=== PATIENT | male | born 1960 | race Caucasian/White ===

== ENCOUNTER 2020-06-13 09:45 | Emergency (ER) | payer OTHER ==
[~2020-06-13] VITALS: Ht 180.3 cm; Wt 80.7 kg
[2020-06-13] MEDS ORDERED: PRED20 PO (11:41)
== END 2020-06-13 12:50 | disposition home or self-care (01) ==
LOC: ER 09:45
DX: U07.1 COVID-19 (principal); J12.82 Pneumonia due to coronavirus disease 2019; R09.02 Hypoxemia
CPT/HCPCS: 71045; 99285; J7512

== ENCOUNTER 2020-06-18 10:16 | Inpatient (IN) | payer OTHER ==
[~2020-06-18] VITALS: Ht 180.3 cm; Wt 72.5 kg
[~2020-06-18 10:16] MED LIST: PRED20 PO
[2020-06-18 10:35] LABS: Calcium, Ionized (POC) 0.98 mmol/L (1.10-1.46); Chloride (POC) 102 mmol/L (98-108); Creatinine (POC) 0.7 mg/dL (0.8-1.3); Glucose (ISTAT POC) 129 mg/dL (70-99); Hemoglobin (POC) 13.6 g/dL (13.5-17.5); Potassium (POC) 3.1 mmol/L (3.5-5.5); Sodium (POC) 136 mmol/L (135-148); Total CO2 (POC) 22 mmol/L (21-32)
[2020-06-18 10:47] LABS: BASOPHILS ABSOLUTE AUTO 0.04 K/mm3 (0.00-0.23); BASOPHILS PERCENT AUTO 0 % (0-2); EOSINOPHILS ABSOLUTE AUTO 0.13 K/mm3 (0.00-0.68); EOSINOPHILS PERCENT AUTO 1 % (0-6); Hematocrit 39.9 % (37.0-53.0); Hemoglobin 13.3 g/dL (13.5-17.5); IMMATURE GRAN ABSOLUTE AUTO 0.07 K/mm3 (0.00-0.10); IMMATURE GRAN PERCENT AUTO 1 % (0-1); LYMPHOCYTES ABSOLUTE AUTO 0.42 K/mm3 (0.84-5.20); LYMPHOCYTES PERCENT AUTO 3 % (21-46); MONOCYTES ABSOLUTE AUTO 0.18 K/mm3 (0.16-1.47); MONOCYTES PERCENT AUTO 1 % (4-13); Mean Corpuscular HGB 29.5 pg (26.0-34.0); Mean Corpuscular HGB Conc 33.3 g/dL (31.5-36.5); Mean Corpuscular Volume 89 fL (80-100); Mean Platelet Volume 9.6 fL (9.1-12.4); NEUTROPHILS ABSOLUTE AUTO 12.46 K/mm3 (1.96-9.15); NEUTROPHILS PERCENT AUTO 94 % (41-73); Platelet Count 272 K/mm3 (150-400); RDW Coefficient Variation 11.7 % (11.7-14.2); RDW Standard Deviation 37.4 fL (35.1-46.3); Red Blood Cell Count 4.51 M/mm3 (4.30-5.90)
[2020-06-18 10:54] LABS: PCO2 Arterial 32.4 mmHg (35-45); PO2 Arterial 320 mmHg (80-100); pH Blood Arterial 7.47 (7.35-7.45)
[2020-06-18 10:58] LABS: Troponin I <0.015 ng/mL (0.000-0.040)
[2020-06-18 11:01] LABS: Alanine Aminotransfer (ALT/SGP 31 U/L (12-78); Albumin, Blood 2.4 g/dL (3.4-5.0); Albumin/Globulin Ratio 0.6 (0.8-1.8); Alk Phos 80 U/L (50-136); Anion Gap 12 mmol/L (6-16); Aspartate Aminotrans (AST/SGOT 32 U/L (12-37); Bilirubin, Total 0.9 mg/dL (0.1-1.0); Blood Urea Nitrogen 18 mg/dL (8-24); Bun/Creatinine Ratio 24.1 (12.0-20.0); CO2, Blood 22 mmol/L (21-32); Calcium, Blood 8.2 mg/dL (8.5-10.1); Chloride, Blood 105 mmol/L (98-108); Creatinine, Blood 0.75 mg/dL (0.60-1.20); Glomerular Filtration Rate >60 (60-); Glucose, Blood 128 mg/dL (70-99); Potassium, Blood 3.1 mmol/L (3.5-5.5); Sodium, Blood 139 mmol/L (136-145); Total Protein, Blood 6.4 g/dL (6.4-8.2)
[2020-06-18 11:05] LABS: C-REACTIVE PROTEIN, EXT RANGE >19.000 mg/dL (0.000-0.300)
[2020-06-18 11:29] LABS: International Normalized Ratio 1.14; Prothrombin Time Results 12.1 Sec (9.7-11.5)
--- NOTE | 2020-06-18 15:28 | NUR ---
ASSUMED CARE: PT ARRIVES FROM ED ON NC AND PROMPLTLY SWITCHED TO AIRVO AT 60L WITH 72% FIO2. NSR TO SINUS TACH ON TELE IN LOW 100S. RESPIRATIONS RAPID AND LABORED, IN THE 40S. RN NOTED ORDER FOR SCDS WITH ELEVATED D DIMER AND NO CT OR DOPPLER STUDIES DONE. DR ANDRADE WAS NOTIFIED AND STATED THAT SCDS NOT NEEDED DUE TO LOVENOX. NO ORDER FOR CT OR FURTHER STUDIES AT THIS TIME. RELAYED PT'S PRESENTATION AND NO NEED FOR PULM CONSULT AT PRESENT. PT RESTING, APPEARS COMFORTABLE AT PRESENT.
--- NOTE | 2020-06-18 17:24 | NUR ---
PT'S KAREEN CALLED TO CHECK IN ON PT AND WAS GIVEN UPDATE. PT REMAINS ON 60L WITH 72% FIO2. RESTING IN BED IN CHAIR POSITIONS BUT IS AGREEABLE TO PRONING AT A LATER TIME. NO ACUTE NEEDS AT THIS TIME.
--- NOTE | 2020-06-18 18:45 | NUR ---
PT'S DAUGHTER JOSEPH CALLED AND PT VERBALIZED PERMISSION TO GIVE HER INFORMATION. JOSEPH WAS GIVEN AN UPDATE ON PT'S STATUS. PT REMAINS ON AIRVO AT 60L WITH 72%. SATTING LOW 90S AT THIS TIME. HR IN 90S WITH RESPIRATIONS 30S-40S. NO FURTHER NEEDS OR CONCERNS AT THIS TIME.
--- NOTE | 2020-06-18 19:05 | NUR ---
ASSUMPTION OF CARE RECIEVED REPORT FROM TARI MITCHELL. ASSUMED CARE OF PATIENT. PATIENT IN ROOM, INDEPENDENTLY REPOSITIONING SELF. VITALS STABLE, AIRVO 60L AND 70%. WILL REVIEW ORDERS AND TREAT PRESCRIBED.
--- NOTE | 2020-06-18 22:05 | NUR ---
PRONE EDUCATED PATIENT REGARDING THE BENEFITS OF PRONING. PATIENT VERBLIZED UNDERSTANDING. PRONED WITH VERBAL ASSISTANCE. VITALS STABLE, SATS REMAINED MID TO HIGH 90'S ON AIRVO OF 60L, 65%. PATIENT TOLERATING WELL AT THIS TIME. WILL CONTINUE TO MONITOR. CALL LIGHT IN REACH.
--- NOTE | 2020-06-19 | NUR ---
REASSESSMENT NO ACUTE CHANGES FROM PREVIOUS ASSESSMENT. VITALS STABLE PATIENT TURNED TO HIS RIGHT. DENIES NEEDS OR DISCOMFORTS. CALL LIGHT IN REACH.
[2020-06-19 03:26] LABS: BASOPHILS ABSOLUTE AUTO 0.02 K/mm3 (0.00-0.23); BASOPHILS PERCENT AUTO 0 % (0-2); EOSINOPHILS PERCENT AUTO 0 % (0-6); Hemoglobin 12.1 g/dL (13.5-17.5); IMMATURE GRAN ABSOLUTE AUTO 0.05 K/mm3 (0.00-0.10); IMMATURE GRAN PERCENT AUTO 0 % (0-1); LYMPHOCYTES ABSOLUTE AUTO 0.32 K/mm3 (0.84-5.20); LYMPHOCYTES PERCENT AUTO 3 % (21-46); MONOCYTES ABSOLUTE AUTO 0.18 K/mm3 (0.16-1.47); MONOCYTES PERCENT AUTO 2 % (4-13); Mean Corpuscular HGB 29.3 pg (26.0-34.0); Mean Corpuscular HGB Conc 32.7 g/dL (31.5-36.5); Mean Corpuscular Volume 90 fL (80-100); Mean Platelet Volume 9.8 fL (9.1-12.4); NEUTROPHILS ABSOLUTE AUTO 10.57 K/mm3 (1.96-9.15); NEUTROPHILS PERCENT AUTO 95 % (41-73); Platelet Count 174 K/mm3 (150-400); RDW Coefficient Variation 11.7 % (11.7-14.2); Red Blood Cell Count 4.13 M/mm3 (4.30-5.90); White Blood Cell Count 11.14 K/mm3 (4.00-11.30)
[2020-06-19 03:43] LABS: Alanine Aminotransfer (ALT/SGP 36 U/L (12-78); Albumin/Globulin Ratio 0.5 (0.8-1.8); Alk Phos 75 U/L (50-136); Anion Gap 6 mmol/L (6-16); Aspartate Aminotrans (AST/SGOT 29 U/L (12-37); Bilirubin, Total 0.6 mg/dL (0.1-1.0); Blood Urea Nitrogen 21 mg/dL (8-24); Bun/Creatinine Ratio 25.5 (12.0-20.0); CO2, Blood 27 mmol/L (21-32); Chloride, Blood 109 mmol/L (98-108); Creatinine, Blood 0.82 mg/dL (0.60-1.20); Globulin, Blood 3.7 g/dL (2.2-4.0); Glomerular Filtration Rate >60 (60-); Glucose, Blood 113 mg/dL (70-99); Magnesium, Blood 2.4 mg/dL (1.6-2.4); Phosphorus, Blood 4.3 mg/dL (2.5-4.9); Potassium, Blood 4.4 mmol/L (3.5-5.5); Sodium, Blood 142 mmol/L (136-145); Total Protein, Blood 5.7 g/dL (6.4-8.2)
--- NOTE | 2020-06-19 04:00 | NUR ---
REASSESSMENT NO ACUTE CHANGES FROM PREVIOUS ASSESSMENT. AIRVO SETTINGS 60L AND 65%, WITH SATS MAINTAINING ABOVE 90%. VITALS STABLE. PATIENT CONTINUES TO DENY NEEDS. REPOSITIONING SELF FOR COMFORT. CALL LIGHT IN REACH.
--- NOTE | 2020-06-19 06:11 | NUR ---
SHIFT SUMMARY PATIENT A/O, REPOSITIONING. BEGINNING TO DESAT WITH ACTIVITY DOWN TO MID 80'S. AIRVO SETTINGS REMAIN UNCHANGED. PATIENT RECOVERS WITHIN SEVERAL MINUTES. DOES REPORT SHORTNESS OF BREATH WITH ACTIVITY. VITALS REMAIN STABLE. WILL CONTINUE TO MONITOR AND REPORT TO ONCOMING RN.
--- NOTE | 2020-06-19 14:27 | NUR ---
late em entry... PT DENIES PAIN OR DISTRESS WITH PERSONAL REOPSITIONING IN BED BUT HAS VERY LITTLE RESERVE FOR ACTIVITY AND EVEN EATING WHEN PT WILL DESAT IF HE DOES NOT EAT SLOWLY. O2 SETTINGS NOTED. PT IS VOIDING AND WAS UP TO BSC FOR BM. FAMILY HAS CALLED IN TO OBTAIN UPDATE OF PT STATUS.
--- NOTE | 2020-06-19 14:34 | NUR ---
NO SPUTUM HAS BEEN OBTAINEND EVEN WITH OCC COUGH ONLY CLEAR SPUTUM COMES UP. PT HAS FEED SELF AND HAS BEEN SETTING UP MUCH O0F DAY. OCC ATTEMPTING TO LIE SIDE TO SIDE.
--- NOTE | 2020-06-19 17:41 | NUR ---
Spiritual care note: Per admit trigger, I was tasked to meet with Mr. Shelton and offer information about ACP. Mr. Shelton is Covid+ and sleeping. Asked RN to take in advanced directive packet and advise I would be available to help complete.
--- NOTE | 2020-06-19 18:15 | NUR ---
PT HAS CONTINUED TO REST WELL THIS DAY WITH CONT AIRVO SETTINGS AND LESS EXERTIONAL DISTRESS THIS PM WHILE STANDING AT SIDE OF BED FOR LINEN CHANGE. PT DID DESAT TO 87-88% BUT RECOVERED AGAIN QUICKLY. VS REMAIN STABLE, I/O NOTED AND PT IS EATING SLOWLY FEEDING SELF.
--- NOTE | 2020-06-19 19:21 | NUR ---
ASSUMPTION OF CARE RECEIVED REPORT FROM MARIA ELENA MITCHELL. ASSUMED CARE OF PATIENT. PATIENT UP IN ROOM, AIRVO 60L 65%, VITALS STABLE. DENIES DISCOMFORTS. WILL REVIEW ORDERS AND TREAT PRESCRIBED.
--- NOTE | 2020-06-20 | NUR ---
REASSESSMENT NO ACUTE CHANGES FROM PREVIOUS ASSESSMENT. PATIENT REPOSITIONING SELF TO SIDE, ATTEMPTED PRONING BUT UNABLE TO TOLERATE FOR LONG PERIODS OF TIME DUE TO BACK DISCOMFORTS. OFFERED PATIENT PAIN RELIEF, PATIENT DECLINED AT THIS TIME. ABLE TO TITRATE FIO2 DOWN AND MAINTAIN SATS. PATIENT WILL DESAT WITH POSITIONING TO MID 80'S BUT IS QUICK TO RECOVER. REMAINS INDEPENDENT WITH URINAL AND ADL'S. WILL CONTINUE TO MONITOR.
[2020-06-20 03:35] LABS: BASOPHILS ABSOLUTE AUTO 0.02 K/mm3 (0.00-0.23); BASOPHILS PERCENT AUTO 0 % (0-2); EOSINOPHILS ABSOLUTE AUTO 0.01 K/mm3 (0.00-0.68); EOSINOPHILS PERCENT AUTO 0 % (0-6); Hematocrit 39.9 % (37.0-53.0); Hemoglobin 13.2 g/dL (13.5-17.5); IMMATURE GRAN ABSOLUTE AUTO 0.08 K/mm3 (0.00-0.10); IMMATURE GRAN PERCENT AUTO 1 % (0-1); LYMPHOCYTES ABSOLUTE AUTO 0.41 K/mm3 (0.84-5.20); LYMPHOCYTES PERCENT AUTO 3 % (21-46); MONOCYTES ABSOLUTE AUTO 0.25 K/mm3 (0.16-1.47); MONOCYTES PERCENT AUTO 2 % (4-13); Mean Corpuscular HGB 29.5 pg (26.0-34.0); Mean Corpuscular HGB Conc 33.1 g/dL (31.5-36.5); Mean Corpuscular Volume 89 fL (80-100); Mean Platelet Volume 9.9 fL (9.1-12.4); NEUTROPHILS ABSOLUTE AUTO 12.95 K/mm3 (1.96-9.15); NEUTROPHILS PERCENT AUTO 94 % (41-73); Platelet Count 223 K/mm3 (150-400); RDW Coefficient Variation 11.7 % (11.7-14.2); RDW Standard Deviation 37.7 fL (35.1-46.3); Red Blood Cell Count 4.47 M/mm3 (4.30-5.90); White Blood Cell Count 13.72 K/mm3 (4.00-11.30)
[2020-06-20 03:50] LABS: Anion Gap 7 mmol/L (6-16); Blood Urea Nitrogen 23 mg/dL (8-24); Bun/Creatinine Ratio 30.2 (12.0-20.0); CO2, Blood 26 mmol/L (21-32); Calcium, Blood 8.3 mg/dL (8.5-10.1); Chloride, Blood 108 mmol/L (98-108); Creatinine, Blood 0.76 mg/dL (0.60-1.20); Glomerular Filtration Rate >60 (60-); Glucose, Blood 103 mg/dL (70-99); Magnesium, Blood 2.3 mg/dL (1.6-2.4); Potassium, Blood 4.2 mmol/L (3.5-5.5); Sodium, Blood 141 mmol/L (136-145)
--- NOTE | 2020-06-20 04:00 | NUR ---
REASSESSMENT NO ACUTE CHANGES FROM PREVIOUS ASSESSMENT. PATIENT STATED FEELING MORE ANXIOUS AND DISCOURAGED WITH SHORTNESS OF BREATH HE EXPERIENCES WITH ACTIVITY. EDUCATED PATIENT REGARDING PROCESS OF COVID AND THE RESPIRATORY COMPRIMISE IT CAUSES. EXPLAINED TO PATIENT HIS O2 SATURATIONS HAVE MAINTAINED AND HIS O2 HAS BEEN DECREASED SLIGHTLY. MEDICATED WITH TYLENOL FOR COMFORT. PATIENT NOW ON RIGHT SIDE WITH EYES CLOSED, NO S/S OF DISTRESS. VITALS STABLE. AIRVO 60L, 55% SATS 94%. WILL CONTINUE TO MONITOR.
--- NOTE | 2020-06-20 06:26 | NUR ---
SHIFT SUMMARY NO ACUTE EVENTS THROUGH SHIFT. PATIENT STATED TYLENOL HELPED HIS DISCOMFORTS SIGNIFICANTLY AND HE WAS ABLE TO REST COMFORTABLY. PATIENT LESS ANXIOUS, VITALS STABLE, TOLERATING REPOSITIONING WITHOUT DESATURATION NOTED. CONTINUING TO MONITOR, WILL REPORT OFF TO ONCOMING RN.
--- NOTE | 2020-06-20 10:39 | NUR ---
AM NOTE... ASSUMED CARE OF PT APROX 0700, PT IS A&Ox4 AND IND THE ROOM. PT'S VS STABLE AT THIS TIME. PT IS IN NSR IN THE 60'S-80'S. BP STABLE PT IS ON AIRVO AT 60l AND 58%FIO2 W/O2 SATS>90%. L/S CLEAR T/O DIM IN THE BASES, PT'S O2 SATS DROP TO THE MID 80'S BUT RECOVERS QUICKLY WITH DEEP BREATHING. PT IS IND TO THE BSC AND USING THE URINAL, PER THE PT THIS AM HE HAD GOTTEN UP TO USE THE BSC FOR A BM, TOOK "A FEW STEPS AND THEN GOT REALLY DIZZY AND LOST MY EYE SITE." PT CALLED THIS RN INTO THE ROOM AFTER THIS EVENT HAPPENED. PT WAS ASKED TO NOT GET UP OUT OF BED WITHOUT STAFF IN THE ROOM IN THE FUTURE. WILL CONTINUE TO MONITOR.
--- NOTE | 2020-06-20 17:36 | NUR ---
SHIFT SUMMARY... NO ACUTE NEGATIVE CHANGES NOTED THIS SHIFT. PT CONTINUES TO BE STABLE ON AIRVO AT 60l AND 57% FIO2 WITH O2 SATS>90% EXCEPT WITH ACTIVITY THE PT'S O2 SATS DROP DOWN TO THE MID 80'S BUT HE IS STILL ABLE TO RECOVER QUICKLY. THE PT WAS C/O OF INCREASED BACK AND LEG PAIN DUE TO INACTIVITY AND CHRONIC PAIN ISSUES, BECAUSE OF THE PAIN THE PT WAS NOT ABLE TO PRONE HIMESELF FOR EXTENDED PERIODS OF TIME, THE PROVIDER WAS UPDATED AND NEW ORDERS WERE OBTAINED FOR FLEXERIL AND NORCO 5/325, THESE WERE GIVEN TO THE PT WITH GOOD RESULTS, THE PT WAS ABLE TO TOLERATE PRONING LONGER AND MORE FREQUENTLY. PT'S DAUGHTER CALLED AND WAS UPDATED ON HIS CURRENT CONDITION AND PLAN OF CARE. CALL LIGHT IN REACH WILL CONTINUE TO MONITOR UNTIL REPORT IS GIVEN TO ONCOMING RN.
--- NOTE | 2020-06-20 19:17 | NUR ---
ASSUMPTION OF CARE RECEIVED REPORT FROM RODOLFO MITCHELL. ASSUMED CARE OF PATIENT. PATIENT IN BED WITH EYES CLOSED, RESP. E/U. VITALS STABLE. AIRVO IN PLACE WITH SETTINGS 60L AND 55%. WILL REVIEW ORDERS AND TREAT PRESCRIBED.
--- NOTE | 2020-06-21 | NUR ---
REASSESSMENT NO ACUTE CHANGES FROM PREVIOUS ASSESSMENT. PATIENT SELF PRONES 30 MINUTES AT A TIME. ALTERNATES BETWEEN LEFT AND RIGHT SIDE FOR COMFORT WHEN NOT PRONED. VITALS REMAINED STABLE. CALL LIGHT IN REACH.
[2020-06-21 03:53] LABS: BASOPHILS ABSOLUTE AUTO 0.03 K/mm3 (0.00-0.23); BASOPHILS PERCENT AUTO 0 % (0-2); EOSINOPHILS ABSOLUTE AUTO 0.04 K/mm3 (0.00-0.68); EOSINOPHILS PERCENT AUTO 0 % (0-6); Hematocrit 41.2 % (37.0-53.0); Hemoglobin 13.5 g/dL (13.5-17.5); IMMATURE GRAN ABSOLUTE AUTO 0.12 K/mm3 (0.00-0.10); IMMATURE GRAN PERCENT AUTO 1 % (0-1); LYMPHOCYTES ABSOLUTE AUTO 0.57 K/mm3 (0.84-5.20); LYMPHOCYTES PERCENT AUTO 4 % (21-46); MONOCYTES ABSOLUTE AUTO 0.25 K/mm3 (0.16-1.47); MONOCYTES PERCENT AUTO 2 % (4-13); Mean Corpuscular HGB 29.1 pg (26.0-34.0); Mean Corpuscular HGB Conc 32.8 g/dL (31.5-36.5); Mean Corpuscular Volume 89 fL (80-100); NEUTROPHILS PERCENT AUTO 94 % (41-73); Platelet Count 239 K/mm3 (150-400); RDW Coefficient Variation 11.6 % (11.7-14.2); RDW Standard Deviation 37.2 fL (35.1-46.3); Red Blood Cell Count 4.64 M/mm3 (4.30-5.90); White Blood Cell Count 15.91 K/mm3 (4.00-11.30)
--- NOTE | 2020-06-21 04:00 | NUR ---
REASSESSMENT NO ACUTE CHANGES FROM PREVIOUS ASSESSMENT. PATIENT CONTINUES WITH FREQUENT REPOSITIONING AND PRONING TOLERATED. VITALS STABLE. PATIENT DENIES PAIN AT THIS TIME. CALL LIGHT IN REACH.
[2020-06-21 04:08] LABS: Anion Gap 7 mmol/L (6-16); Blood Urea Nitrogen 19 mg/dL (8-24); Bun/Creatinine Ratio 26.7 (12.0-20.0); CO2, Blood 26 mmol/L (21-32); Calcium, Blood 8.1 mg/dL (8.5-10.1); Chloride, Blood 107 mmol/L (98-108); Creatinine, Blood 0.71 mg/dL (0.60-1.20); Glomerular Filtration Rate >60 (60-); Glucose, Blood 101 mg/dL (70-99); Magnesium, Blood 2.2 mg/dL (1.6-2.4); Potassium, Blood 4.2 mmol/L (3.5-5.5); Sodium, Blood 140 mmol/L (136-145)
--- NOTE | 2020-06-21 06:04 | NUR ---
SHIFT SUMMARY PATIENT REMAINED A/O, NO ACUTE EVENTS THROUGH SHIFT. REPOSITIONS SELF FROM RIGHT TO LEFT SIDE FOR COMFORT. ATTEMPTED PRONING, TOLERATES FOR SHORT INTERVALS. PATIENT STATED HIS BACK HAS NEVER FELT SO GOOD AFTER NORCO WAS GIVEN CHARTED. ENCOURAGED DEEP BREATHING AND COUGHING AND CONTINUING TO ENCOURAGE PRONING. AIRVO SETTINGS 60L, 55%, SATS BETWEEN 90-92%. PATIENT CURRENTLY ON LEFT SIDE WITH EYES CLOSED, NO S/S OF DISTRESS. VITALS REMAINED STABLE. CALL LIGHT IN REACH. WILL GIVE REPORT TO ONCOMING RN.
--- NOTE | 2020-06-21 11:04 | NUR ---
AM NOTE... ASSUMED CARE OF PT APROX 0700, PT IS A&Ox4 AND SBA IN THE ROOM D/T QUICK O2 DESATURATIONS WITH MOVMENT. PT'S OTHER VS STABLE AT THIS TIME. L/S CLEAR AND DIM T/O. BT PRESENT AND NORMOACTIVE, ABD IS SOFT AND NONTENDER TO PALP. PT TOLS THIS RN HE FELT LIKE HE WAS DOING "A BIT WORSE THAN YESTERDAY." PT IS ON ARIVO AT 60l AND 57% FIO2, THIS WAS INCREASED TO 65% FIO2 BY RT LACHO, WHEN THIS RN WAS IN THE ROOM IT HAD TO BE INCREASED TO 72% FIO2 TO KEEP HIS O2 SATS>89%. PT WAS ATTEMPTING TO EAT HIS BREAKFAST BUT WAS TAKING HIS TIME TO AVOID DESATURATION. NO EDEMA WAS NOTED ON ASSESSMENT. PT'S DAUGHTER CALLED AND WAS UPDATED ON PT'S CONDITION AND PLAN OF CARE FOR TODAY. WILL CONTINUE TO MONTIOR.
--- NOTE | 2020-06-21 13:08 | NUR ---
PT UPDATE... PT WAS SWITCHED TO BIPAP BY RT WITH SETTINGS OF 12/6 AND 65% FIO2 FROM THE AIRVO OF 60l AND 68%, PT STATES THAT HE LIKES THE BIPAP A LOT BETTER, HE FEELS LIKE HIS WORK OF BREATHING HAS IMPROVED ON THE BIPAP. PT'S O2 SATS ARE >91% AND HE DOES NOT DESAT QUICKLY OR LOW WHEN HE IS ON THE AIRVO. PT ENCOURAGED TO CONTINUE TO PRONE TOLERATED. VS CONTINUES TO BE STABLE. PER THE PT HE DOES NOT WANT ANY INFORMATION GIVEN TO ANYONE BESIDES HIS DAUGHTER KAILASH. CALL LIGHT IN REACH WILL CONTINUE TO MONITOR.
--- NOTE | 2020-06-21 17:57 | NUR ---
SHIFT SUMMARY.... NO ACUTE NEGATIVE CHANGES SINCE PRIVIOUS NOTES, PT HAS TOLERATED THE BIPAP WELL T/O THE SHIFT. PT WAS GIVEN A BED BATH ASSIST AND LINEN CHANGE THIS AFTERNOON AND WAS ABLE TO TOLERATE STANDING AT THE SIDE OF THE BED FOR APROX 5 MINS. PT IS IN A MUCH BETTER MOOD SINCE STARTING THE BIPAP THAN HE WAS IN THIS AM. PT TOLD THIS RN "I FEEL LIKE I AM GETTING BETTER AND HAVE TURNED A CORNER." PT HAS HAD A GOOD APPETITIE THIS SHIFT EATING >40% OF ALL HIS MEALS. CALL LIGHT IN REACH WILL CONTINUE TO MONITOR UNITIL REPORT IS GIVEN TO ONCOMING RN.
--- NOTE | 2020-06-21 20:00 | NUR ---
ASSUMED CARE OF PT AT 1915. REPORT RECEIVED. PT PRESENTS IN BED. ALERT AND ORIENTTED. PLEASANT AND COOPERATIVE WITH CARE AND ASSESSMENT. HAS NO COMPLAINTS AT THIS TIME. DOES STATE THAT HE FEELS THAT THE BIPAP HAS BEEN VERY HELPFUL WITH HIS BREATHING. WILL REVIEW CHART AND PLAN OF CARE FOR THIS PT.
--- NOTE | 2020-06-21 23:00 | NUR ---
PT HAS VOIDED Q.S. MOVES ABOUT ROOM ON HIS OWN. NO INCREASE IN RESPIRATORY EFFORTS. CONTINUES TO BE VERY APPRECIATIVE OF CARE. MOSTLY INDEPENDENT. WILL CONTINUE TO MONITOR.
[2020-06-22 03:41] LABS: BASOPHILS ABSOLUTE AUTO 0.03 K/mm3 (0.00-0.23); BASOPHILS PERCENT AUTO 0 % (0-2); EOSINOPHILS ABSOLUTE AUTO 0.06 K/mm3 (0.00-0.68); EOSINOPHILS PERCENT AUTO 0 % (0-6); Hematocrit 42.3 % (37.0-53.0); Hemoglobin 13.9 g/dL (13.5-17.5); IMMATURE GRAN ABSOLUTE AUTO 0.12 K/mm3 (0.00-0.10); IMMATURE GRAN PERCENT AUTO 1 % (0-1); LYMPHOCYTES ABSOLUTE AUTO 0.59 K/mm3 (0.84-5.20); LYMPHOCYTES PERCENT AUTO 4 % (21-46); MONOCYTES ABSOLUTE AUTO 0.29 K/mm3 (0.16-1.47); MONOCYTES PERCENT AUTO 2 % (4-13); Mean Corpuscular HGB 29.1 pg (26.0-34.0); Mean Corpuscular HGB Conc 32.9 g/dL (31.5-36.5); Mean Corpuscular Volume 89 fL (80-100); Mean Platelet Volume 9.9 fL (9.1-12.4); NEUTROPHILS ABSOLUTE AUTO 14.69 K/mm3 (1.96-9.15); NEUTROPHILS PERCENT AUTO 93 % (41-73); Platelet Count 217 K/mm3 (150-400); RDW Coefficient Variation 11.7 % (11.7-14.2); RDW Standard Deviation 37.7 fL (35.1-46.3); Red Blood Cell Count 4.77 M/mm3 (4.30-5.90); White Blood Cell Count 15.78 K/mm3 (4.00-11.30)
[2020-06-22 04:02] LABS: Anion Gap 6 mmol/L (6-16); Blood Urea Nitrogen 19 mg/dL (8-24); Bun/Creatinine Ratio 29.8 (12.0-20.0); CO2, Blood 27 mmol/L (21-32); Calcium, Blood 8.2 mg/dL (8.5-10.1); Chloride, Blood 105 mmol/L (98-108); Creatinine, Blood 0.64 mg/dL (0.60-1.20); Glomerular Filtration Rate >60 (60-); Glucose, Blood 94 mg/dL (70-99); Magnesium, Blood 2.2 mg/dL (1.6-2.4); Potassium, Blood 4.5 mmol/L (3.5-5.5); Sodium, Blood 138 mmol/L (136-145)
--- NOTE | 2020-06-22 06:30 | NUR ---
PT HAS GONE BACK TO AIRVO AT 60 L/M, AT 66 % FIO2. MAINTAINS > 90 PERCENT SATURATIONS. DOES DESATURATE WITH COUGH OR IF HE OVEREXERTS HIMSELF. RESPIRATORY TEACHING DONE. PILLOWS PLACED IN RESPIRATORY PATTERN WHICH HE STATES IS HELPFUL. PT DOES HIS OWN ORAL CARE. DID TEACH ON IMPORTANCE OF GOOD ORAL CARE WHILE WEARING A BIPAP. PT DEMONSTRATES GOOD UNDERSTANDING. WILL CONTINUE TO MONITOR PT, AND WILL REPORT OFF TO ONCOMING RN.
--- NOTE | 2020-06-22 07:29 | NUR ---
ASSUMED CARE PATIENT RESTING IN BED WITH EYES CLOSED, VSS, ON AIRVO AND INDEPENDENT IN ROOM
--- NOTE | 2020-06-22 08:58 | NUR ---
PT HAVING DIFFICULTY BREATHING THIS MORNING. LUNG SOUNDS COARSE AND TIGHT WITH SHALLOW TACHYPNIC. ACCESSORY MUSCLE USE EVIDENT, COUGH IS PRODUCTIVE, SAT'S IN THE HIGH 80'S, AIRVO ADJUSTED BY RT, 50L @ 80%. INTRODUCED INCENTIVE SPIROMETER TO PT AND INSTRUCTED ON USE. PT REACHED 1000 ON FIRST TRY, CAUSING COUGHING. EDUCATED PT ON THE USE AND BENEFITS OF THE IS. PT TO DO 3 TO 4 BREATHS WITH THE INCENTIVE SPIROMETER AT A TIME, AND REMINDED NOT TO DO MORE THAN THAT IN A ROW D/T TIRING OUT QUICKLY. PT VERBALIZED UNDERSTANDING AND WILL DO 10 TRIES AN HOUR TOTAL, BUT NOT ALL AT ONCE.
--- NOTE | 2020-06-22 18:02 | NUR ---
SHIFT SUMMARY PATIENT CONTINUED TO IMPROVE THROUGHOUT THE DAY. INCENTIVE SPIROMETER WAS A BIG HELP WITH HIS BREATHING TODAY. HIS FIRST ATTEMPT WAS ONLY 800, NOW HE IS ALMOST UP TO 2500. FIO2 HAS BEEN REDUCED FROM 80% TO 69% AND STATES HE FEELS HE CAN BREATH BETTER. PATIENT CONTINUED TO PRONE HIMSELF DURING THE SHIFT AND HE DOES OXYGENATE BETTER WHEN HE IS PRONE. VSS, URINE OUTPUT GOOD AND HE STILL HAS NOT HAD A BM. WILL GET BOWEL PROTOCOL STARTED.
--- NOTE | 2020-06-22 20:00 | NUR ---
ASSUMED CARE OF PT AT 1915. REPORT RECEIVED. PT PRESENTS IN BED. ALERT AND ORIENTED. PLEASANT AND COOPERATIVE WITH CARE AND ASSESSMENT. DENIES COMPLAINTS OF PAIN. DOES HAVE EXERTIONAL DYSPNEA. SPEAKS OF EARLIER IN DAY HIS RESPIRATORY ISSUES AND THAT IT HAD A PROFOUND AFFECT ON HIS FEELINGS OF HIS CURRENT HEALTH ISSUES. FEELS IF HE HAD GONE "BACKWARDS" STATES THAT HE IF DOING MUCH BETTER THIS EVENING. CONTINUED TEACHING AND REINFORCEMENT TEACHING OF PREVIOUS EDUCATION. PT VOICES UNDERSTANDING. ASKS QUESTIONS. WILL REVIEW CHART AND PLAN OF CARE FOR THIS PT.
--- NOTE | 2020-06-22 22:30 | NUR ---
PT REMOVES HIS AIRVO FOR A MOMENT TO BLOW HIS NOSE. HE FORGETS TO PLACE AIRVO BACK TO HIS NARES. DURING THIS PERIOD, PT DESATURATES TO 73 PERCENT. WHEN HE WAS REMINDED TO PUT OXYGEN BACK IN PLACE, HE FOCUSSED ON BREATHING THROUGH HIS NOSE. RETURNED HIS SATURATIONS > 90 PERCENT. PT STATES THAT HE IS GOING TO WEAR AIRVO THIS NIGHT SO THAT HE IS ABLE TO PRONE SELF. HE DOES COMPLAIN THAT WHEN HE IS PRONE, HIS BACK DOES START TO BOTHER HIM. DID MEDICATE PT WITH FLEXERIL AND NORCO. ADJUSTED PT'S BED TO FIRM WHICH HE STATES HAS MADE IT EASIER WHILE PRONED.
--- NOTE | 2020-06-23 00:37 | NUR ---
PT RESTING COMFORTABLE IN BED. CURRENTLY PRONED. NO COMPLAINTS. DOES HAVE OCCASSIONAL DRY COUGH WHEREAS HE DESATURATES INTO 85-90 PERCENT AND HE QUICKLY RETURNS TO > 90 PERCENT. NONPRODUCTIVE COUGH. WILL CONTINUE TO MONTIOR.
[2020-06-23 03:55] LABS: BASOPHILS ABSOLUTE AUTO 0.06 K/mm3 (0.00-0.23); BASOPHILS PERCENT AUTO 0 % (0-2); EOSINOPHILS ABSOLUTE AUTO 0.06 K/mm3 (0.00-0.68); EOSINOPHILS PERCENT AUTO 0 % (0-6); Hematocrit 44.3 % (37.0-53.0); Hemoglobin 14.4 g/dL (13.5-17.5); IMMATURE GRAN ABSOLUTE AUTO 0.32 K/mm3 (0.00-0.10); IMMATURE GRAN PERCENT AUTO 1 % (0-1); LYMPHOCYTES ABSOLUTE AUTO 0.63 K/mm3 (0.84-5.20); LYMPHOCYTES PERCENT AUTO 3 % (21-46); MONOCYTES ABSOLUTE AUTO 0.38 K/mm3 (0.16-1.47); MONOCYTES PERCENT AUTO 2 % (4-13); Mean Corpuscular HGB 28.9 pg (26.0-34.0); Mean Corpuscular HGB Conc 32.5 g/dL (31.5-36.5); Mean Corpuscular Volume 89 fL (80-100); Mean Platelet Volume 9.7 fL (9.1-12.4); NEUTROPHILS ABSOLUTE AUTO 21.35 K/mm3 (1.96-9.15); NEUTROPHILS PERCENT AUTO 94 % (41-73); Platelet Count 252 K/mm3 (150-400); RDW Coefficient Variation 11.8 % (11.7-14.2); RDW Standard Deviation 37.5 fL (35.1-46.3); Red Blood Cell Count 4.98 M/mm3 (4.30-5.90)
[2020-06-23 04:22] LABS: Magnesium, Blood 2.2 mg/dL (1.6-2.4); Thyroid Stimulating Hormone 0.805 uIU/mL (0.360-4.800)
[2020-06-23 04:45] LABS: Alanine Aminotransfer (ALT/SGP 43 U/L (12-78); Albumin, Blood 2.3 g/dL (3.4-5.0); Albumin/Globulin Ratio 0.6 (0.8-1.8); Alk Phos 76 U/L (50-136); Aspartate Aminotrans (AST/SGOT 22 U/L (12-37); Bilirubin, Direct <0.1 mg/dL (0.0-0.3); Bilirubin, Indirect Unable to Calculate mg/dL (0.1-0.7); Bilirubin, Total 0.5 mg/dL (0.1-1.0); Globulin, Blood 3.8 g/dL (2.2-4.0); Phosphorus, Blood 3.5 mg/dL (2.5-4.9); Total Protein, Blood 6.1 g/dL (6.4-8.2)
--- NOTE | 2020-06-23 06:30 | NUR ---
20GAUGE BY 10 CM POWERGLIDE STARTED IN LEFT UPPER ARM. PT TOLERATES THIS WELL. PT CURRENTLY BACK TO BIPAP MASK. DOES FOLLOW TEACHINGS WELL. WILL CONTINUE TO MONITOR PT, AND WILL REPORT OFF TO ONCOMING RN.
--- NOTE | 2020-06-23 09:28 | NUR ---
[place] of Care: Care assumed at 0700hr. Patient on BiPAP at shift change, but quickly switched back to Airvo at 50L/57%, tolerating without difficulty. SpO2-92-94%, VSS. Patient has some SOB while conversing with staff, with exertion, or after coughing, but recovers with rest. Reported that patient self prones and uses incentive spirometer throughout day. This nurse encouraged patient to continue these interventions, will monitor and assist with task as needed. Also plan to get patient out of bed to chair this shift. Ate approx 75% of breakfast without difficulty. Calm and cooperative with staff. Makes needs known. Will continue to monitor.
--- NOTE | 2020-06-23 18:24 | NUR ---
Shift Summary: Overall, patient states that he felt/feels very well this shift. SOB (with exertion, speech, or activity), improved throughout shift. Patient able to transfer up to chair and stand during bed change with little difficulty, spO2 only dropped to 88% for very short amount of time. Remained on Airvo NC throughout shift, remained at 50L, but FiO2 decreased from 66% to 55%. All other VS remain stable. Good apatite throughout shift, eating 75-90% of meals. Patient's allowed to visit today during visiting hours. Patient very happy to see his and have a visitor. Remains in good spirits, calm and cooperative with staff. Adjusting own positioning bed. Makes needs known. Will continue to monitor until report to NOC shift RN.
--- NOTE | 2020-06-23 19:15 | NUR ---
ASSUMED CARE OF PT, REPORT RECEIVED. PT IS RESTING QUIETLY RECLINING IN BED WITH RT AT BEDSIDE. HE IS SPEAKING IN FULL SENTENCES WHEN AT REST, SATS MAINTAINING MID 90S WITH OXYGEN VIA AIRVO. PRESSURES HAVE BEEN STABLE THROUGHOUT DAY SHIFT. PT IS ALERT AND ORIENTED, DENIES NEEDS AT THIS TIME.
[2020-06-24 03:38] LABS: BASOPHILS ABSOLUTE AUTO 0.04 K/mm3 (0.00-0.23); BASOPHILS PERCENT AUTO 0 % (0-2); EOSINOPHILS ABSOLUTE AUTO 0.08 K/mm3 (0.00-0.68); EOSINOPHILS PERCENT AUTO 0 % (0-6); Hematocrit 42.4 % (37.0-53.0); Hemoglobin 13.8 g/dL (13.5-17.5); IMMATURE GRAN ABSOLUTE AUTO 0.32 K/mm3 (0.00-0.10); IMMATURE GRAN PERCENT AUTO 2 % (0-1); LYMPHOCYTES ABSOLUTE AUTO 0.76 K/mm3 (0.84-5.20); LYMPHOCYTES PERCENT AUTO 4 % (21-46); MONOCYTES ABSOLUTE AUTO 0.42 K/mm3 (0.16-1.47); MONOCYTES PERCENT AUTO 2 % (4-13); Mean Corpuscular HGB 28.9 pg (26.0-34.0); Mean Corpuscular HGB Conc 32.5 g/dL (31.5-36.5); Mean Corpuscular Volume 89 fL (80-100); NEUTROPHILS ABSOLUTE AUTO 19.93 K/mm3 (1.96-9.15); NEUTROPHILS PERCENT AUTO 93 % (41-73); Platelet Count 243 K/mm3 (150-400); RDW Coefficient Variation 11.9 % (11.7-14.2); RDW Standard Deviation 38.3 fL (35.1-46.3); Red Blood Cell Count 4.78 M/mm3 (4.30-5.90); White Blood Cell Count 21.55 K/mm3 (4.00-11.30)
[2020-06-24 03:57] LABS: Alanine Aminotransfer (ALT/SGP 40 U/L (12-78); Albumin, Blood 2.3 g/dL (3.4-5.0); Albumin/Globulin Ratio 0.6 (0.8-1.8); Alk Phos 71 U/L (50-136); Anion Gap 6 mmol/L (6-16); Aspartate Aminotrans (AST/SGOT 24 U/L (12-37); Bilirubin, Total 0.8 mg/dL (0.1-1.0); Blood Urea Nitrogen 18 mg/dL (8-24); Bun/Creatinine Ratio 21.9 (12.0-20.0); CO2, Blood 27 mmol/L (21-32); Calcium, Blood 8.1 mg/dL (8.5-10.1); Chloride, Blood 105 mmol/L (98-108); Creatinine, Blood 0.82 mg/dL (0.60-1.20); Globulin, Blood 3.8 g/dL (2.2-4.0); Glomerular Filtration Rate >60 (60-); Glucose, Blood 125 mg/dL (70-99); Magnesium, Blood 2.1 mg/dL (1.6-2.4); Phosphorus, Blood 3.4 mg/dL (2.5-4.9); Potassium, Blood 4.3 mmol/L (3.5-5.5); Sodium, Blood 138 mmol/L (136-145); Total Protein, Blood 6.1 g/dL (6.4-8.2)
--- NOTE | 2020-06-24 06:04 | NUR ---
PT RESTS QUIETLY THROUGHOUT SHIFT, SATS CONTINUE TO MAINTAIN MID TO UPPER 90S WITH OXYGEN VIA AIRVO AT 45 L/MIN AND FIO2 OF 59-60%, HE CONTINUES TO SELF PRONE FOR LONG HIS BACK WILL TOLERATE WHICH IS GENERALLY BETWEEN 1 AND 2 HOURS AT A TIME, HE REPORTS THAT HE CAN FEEL A MARKED IMPROVEMENT IN HIS BREATHING WHEN HE IS PRONE AND IF HIS BACK COULD TOLERATE THE POSITION HE WOULD PREFER TO SLEEP PRONE. HE HAS BEEN ABLE TO STAND AT BEDSIDE WITH STANDBY ASSIST FOR LINE MANAGEMENT WITH STEADY GAIT AND TOLERATED WELL, SATS DID DECREASE TO UPPER 80S WITH THE INCREASE IN ACTIVITY HOWEVER RETURNED TO GREATER THAN 90% WITHIN 2 MINUTES OF PT RETURN TO REST. DRY INTERMITTENT COUGH CONTINUES, PT DOES BELIEVE THAT HE CAN FEEL SOME SPUTUM "LOOSENING UP" WHEN HE IS LYING PRONE.
--- NOTE | 2020-06-24 10:10 | NUR ---
PT AWAKE SITTING UP IN BED W AIRVO AT 45L/FIO2 60%. SPO2 > 90% WHILE STILL. SATS DROP TO 85% W ANY EXERTION INCLUDING SPEAKING AND EATING. PT STATES HE FEELS A LITTLE IMPROVED TODAY. LUNGS ARE CLEAR T/O W GOOD AIR MOVEMENT. PT ABLE TO MOVE SELF TO BEDSIDE COMMODE AND SELF PRONE NEEDED. PT C/O 8/10 BACK PAIN; VICODIN AND FLEXERIL GIVEN.
--- NOTE | 2020-06-24 12:53 | NUR ---
NO CHANGES IN ASSESSMENT. PT USING IS PRN. PT UP TO BEDSIDE COMMODE NEEDED. GOOD APPETITE. ISTRATE IN TO SEE PT.
--- NOTE | 2020-06-24 16:18 | NUR ---
PT FEELING VERY TIRED; WORN OUT FOR THE DAY. RESP RATE UP; 20-30'S. SATS REMAIN >90% ON 45L/60% VIA AIRVO. VICODIN GIVEN FOR CONTINUED BACK PAIN. PT STATES BACK PAIN EXACERBATED FROM PRONING. PT STILL PRONING T/O SHIFT; SPO2 98% WHILE PRONE. NO OTHER CHANGES FROM PRIOR ASSESSMENT
--- NOTE | 2020-06-24 20:49 | NUR ---
SHIFT ASSESSMENT. ASSUMED CARE OF PT @ 1900, REPORT FROM MIRZA MITCHELL. PT ALERT AND ORIENTED. SITTING UPRIGHT IN BED TALKING ON THE PHONE. AIRVO AT 45L/60% c O2 SATS >90%, DESATS TO THE LOW 80'S WITH EXERTION. PT ABLE TO MOVE SELF TO BEDSIDE COMMODE. PRONING ANYTIME HE LAYS FLAT, UTLIZING INCENTIVE SPIROMETER. THIS NURSE ENCOURAGED PT TO CONTINUE USINGE IS. PT C/O BACK PAIN FROM AN OLD INJURY AND PRONING, WILL MEDICATED PRN. NO OTHER COMPLAINTS AT THIS TIME, CALL LIGHT WITHIN REACH. WILL CONTINUE TO MONITOR.
[2020-06-25 04:02] LABS: BASOPHILS ABSOLUTE AUTO 0.03 K/mm3 (0.00-0.23); BASOPHILS PERCENT AUTO 0 % (0-2); EOSINOPHILS ABSOLUTE AUTO 0.02 K/mm3 (0.00-0.68); EOSINOPHILS PERCENT AUTO 0 % (0-6); Hematocrit 42.9 % (37.0-53.0); Hemoglobin 14.1 g/dL (13.5-17.5); IMMATURE GRAN PERCENT AUTO 1 % (0-1); LYMPHOCYTES ABSOLUTE AUTO 0.61 K/mm3 (0.84-5.20); LYMPHOCYTES PERCENT AUTO 3 % (21-46); MONOCYTES ABSOLUTE AUTO 0.64 K/mm3 (0.16-1.47); MONOCYTES PERCENT AUTO 3 % (4-13); Mean Corpuscular HGB 29.6 pg (26.0-34.0); Mean Corpuscular HGB Conc 32.9 g/dL (31.5-36.5); Mean Corpuscular Volume 90 fL (80-100); Mean Platelet Volume 9.6 fL (9.1-12.4); NEUTROPHILS ABSOLUTE AUTO 20.72 K/mm3 (1.96-9.15); NEUTROPHILS PERCENT AUTO 93 % (41-73); Platelet Count 297 K/mm3 (150-400); RDW Coefficient Variation 11.9 % (11.7-14.2); RDW Standard Deviation 39.6 fL (35.1-46.3); Red Blood Cell Count 4.76 M/mm3 (4.30-5.90); White Blood Cell Count 22.32 K/mm3 (4.00-11.30)
[2020-06-25 04:23] LABS: Alanine Aminotransfer (ALT/SGP 39 U/L (12-78); Albumin, Blood 2.3 g/dL (3.4-5.0); Albumin/Globulin Ratio 0.6 (0.8-1.8); Alk Phos 74 U/L (50-136); Anion Gap 6 mmol/L (6-16); Aspartate Aminotrans (AST/SGOT 23 U/L (12-37); Bilirubin, Total 0.6 mg/dL (0.1-1.0); Blood Urea Nitrogen 18 mg/dL (8-24); Bun/Creatinine Ratio 23.7 (12.0-20.0); CO2, Blood 28 mmol/L (21-32); Calcium, Blood 8.1 mg/dL (8.5-10.1); Chloride, Blood 106 mmol/L (98-108); Creatinine, Blood 0.76 mg/dL (0.60-1.20); Globulin, Blood 4.1 g/dL (2.2-4.0); Glomerular Filtration Rate >60 (60-); Glucose, Blood 102 mg/dL (70-99); Magnesium, Blood 2.1 mg/dL (1.6-2.4); Phosphorus, Blood 3.5 mg/dL (2.5-4.9); Potassium, Blood 4.1 mmol/L (3.5-5.5); Sodium, Blood 140 mmol/L (136-145); Total Protein, Blood 6.4 g/dL (6.4-8.2)
--- NOTE | 2020-06-25 06:10 | NUR ---
SHIFT SUMMARY PT REMAINS ALERT AND ORIENTED. NO SIGNIFICANT CHANGES T/O THE NIGHT. PT SELF PRONING, MEDICATED WITH PRN PAIN MEDS FOR BACK PAIN RELATED TO PRONING. TOLERATING FOOD AND DRINK. NO CHANGES IN AIRVO SETTINGS. VSS. WILL CONTINUE TO MONITOR, REPORT TO ONCOMING NURSE.
--- NOTE | 2020-06-25 08:59 | NUR ---
CARE ASSUMED OF PT AT 0700. PT WAKE SITTING UP IN BED. O2 45;/60% VIA AIRVO. O2 REQUIREMENTS REMAIN UNCHANGED FROM YESTERDAY. SATS >90% UNLESS PT EXERTING SELF; SPEAKING, EATING, REPOSITIONING SELF. SATS DROP LOW 84% BUT PT RECOVERS O2 WITHIN A MIN. PT STATES HE PRONED LAST NIGHT FOR ABOUT 6HRS. PT USING I.S. OFTEN. LUNGS CLEAR W/O CRACKLES. DR LIVE IN TO SEE PT THIS AM. CHEST XRAY REVIEWED W PT. 40MG IV LASIX ORDERED AND GIVEN. WILL TITRATE O2 DOWN TOLERATED IF PT IMPROVES TODAY.
--- NOTE | 2020-06-25 09:42 | NUR ---
PT'S SPO2 DROPPED TO 76% AFTER GETTING UP TO BEDSIDE COMMODE. PT VERY SOB, HEART RATE 130-140. PT ASSISTED BACK TO BED. FIO2 INCREASED TO 80%. SPO2 NOW 90-91%. RT UPDATED. HEART RATE IMPROVING. PT WILL CALL FOR ASSISTANCE UP FROM NOW ON.
--- NOTE | 2020-06-25 11:54 | NUR ---
PT REPORTS HAVING INCREASED SOB. RT AT BEDSIDE. AIRVO JESSENIA INCREASED TO 55L/ FIO2 70%. PT ABLE TO PRONE HIMSELF. PT REPORTING IMPROVEMENT, SATS 97%.
--- NOTE | 2020-06-25 12:01 | NUR ---
DR LIVE GIVEN UPDATE.
--- NOTE | 2020-06-25 12:43 | NUR ---
PT'S LUNGS ARE MORE DIMINISHED THAN THIS AM. PT FEELS MORE SOB THAN HE DID THIS AM. SATS STABLE ON 55L/70% AIRVO. PT'S WORK OF BREATHING DOES APPEAR SLIGHTLY MORE INCREASED. PT WILL WAIT ON EATING LUNCH FOR NOW. VICODIN GIVEN FOR 8/10 BACK PAIN CAUSED FROM FREQUENT PRONING. SABRINA HATFIELD'Erasmo, ROCEPHIN STARTED.
--- NOTE | 2020-06-25 17:29 | NUR ---
PT IS FEELING MUCH BETTER THIS EVENING. PT ABLE TO SPEAK AND MOVE WITH LESS C/O SOB. AIRVO DECREASED TO 45L/56% FIO2. SATS >95%. LUNGS MOVING MORE AIR OVERALL WELL. PT WITH GOOD APPETITE AND PLANS TO PRONE AFTER DINNER.
--- NOTE | 2020-06-25 20:15 | NUR ---
SHIFT ASSESSMENT ASSUMED CARE OF PT @ 1900. REPORT RECV'D FROM MIRZA MITCHELL. PT ALERT AND ORIENTED. APPEARS WELL, STATES HE IS FEELING BETTER THIS EVENING AFTER RECOVERING FROM TODAY'S INCIDENT. LS CLEARING BUT STILL DIMINISHED. AIRVO-45L/ 55%. PT USING INCENTIVE SPIROMETER DURING THE DAY, PRONING TOLERATED. C/O MODERATE NECK/BACK PAIN FROM PRONING AND BEDBOUND STATUS, WILL MEDICATE c PRN PAIN MEDS. NO OTHER COMPLAINTS AT THIS TIME. WILL CONTINUE TO MONITOR.
[2020-06-26 04:27] LABS: Hematocrit 42.8 % (37.0-53.0); Hemoglobin 14.2 g/dL (13.5-17.5); Mean Corpuscular HGB 29.7 pg (26.0-34.0); Mean Corpuscular HGB Conc 33.2 g/dL (31.5-36.5); Mean Corpuscular Volume 90 fL (80-100); Mean Platelet Volume 9.7 fL (9.1-12.4); Platelet Count 317 K/mm3 (150-400); RDW Standard Deviation 39.3 fL (35.1-46.3); Red Blood Cell Count 4.78 M/mm3 (4.30-5.90); White Blood Cell Count 23.43 K/mm3 (4.00-11.30)
[2020-06-26 04:53] LABS: Anion Gap 5 mmol/L (6-16); Blood Urea Nitrogen 20 mg/dL (8-24); Bun/Creatinine Ratio 29.1 (12.0-20.0); CO2, Blood 28 mmol/L (21-32); Calcium, Blood 8.5 mg/dL (8.5-10.1); Chloride, Blood 107 mmol/L (98-108); Creatinine, Blood 0.69 mg/dL (0.60-1.20); Glomerular Filtration Rate >60 (60-); Glucose, Blood 128 mg/dL (70-99); Potassium, Blood 3.9 mmol/L (3.5-5.5); Sodium, Blood 140 mmol/L (136-145)
--- NOTE | 2020-06-26 05:49 | NUR ---
SHIFT SUMMARY PT REMAINS ALERT AND ORIENTED, CONTINUES TO SELF PRONE. UNABLE TO SLEEP MUCH DURING THE NIGHT, REQUESTING SOMETHING FOR SLEEP WHEN HE IS OFF THE AIRVO. NO CHANGES IN AIRVO SETTINGS, O2 SATS >90%. SATS DROP TO MID 80'S WITH EXERTION BUT RECOVER WITHIN A FEW MINUTES TO THE MID TO HIGH 90'S. NO OTHER COMPLAINTS AT THIS TIME, WILL CONTINUE TO MONITOR.
--- NOTE | 2020-06-26 08:45 | NUR ---
ASSESSMENT- PT AWAKE, ALERT, COOPERATIVE. SITTING UP IN BED EATING BREAKFAST. DYSPNEA WITH ANY EXERTION. DESATS TO 88% WITH MOVEMENT, DOES TAKE OFF HIGH FLOW WHEN DRINKING-EXPLAINED PLAN OF CARE, NEED TO LEAVE OXYGEN ON, STATES UNDERSTANDING. LUNGS WITH CRACKLES LEFT BASE, DIMINISHED THROUGHOUT. STATES FEELS SOB-UNCHANGED. ON AIRVO 45 L/MIN 55% AND CONTINUOUS OXYGEN SATURATION MONITOR. SINUS TACH, BP STABLE. IV NS TKO TO LEFT UPPER ARM POWER GLIDE. DENIES ANY N/V. VOIDING PER URINAL. ENHANCED PRECAUTIONS IN EFFECT.
--- NOTE | 2020-06-26 11:05 | NUR ---
DR. VILLA HERE TO ASSESS PT. PT AWAKE, MOVING SELF IN BED. C/O ANXIETY REGARDING OXYGEN LEVELS. EXPLAINED PLAN OF CARE, REASSURANCE GIVEN. VSS
--- NOTE | 2020-06-26 12:15 | NUR ---
VSS. EATING LUNCH. PORTABLE XRAY DONE. ABLE TO REPOSITION SELF
--- NOTE | 2020-06-26 14:00 | NUR ---
PT WITH STABLE VS. ASSISTED TO STAND AT BEDSIDE AND ABLE TO TRANSFER TO CHAIR. STATES FEELS GENERALIZED WEAKNESS. USING INCENTIVE SPIROMETER. MOTIVATED TO GET BETTER. DID NOT DESAT WITH ACTIVITY. ABLE TO DECREASE FIO2 TO 50%
--- NOTE | 2020-06-26 16:01 | NUR ---
REMAINS UP IN CHAIR, TALKING ON PHONE, USING LAPTOP WITHOUT PROBLEMS. DOES GET SOB WITH ACTIVITY. RESP RATE AT REST 30-36 BPM. WHEN CHANGED HIS CLOTHES HAD EPISODE OF DESATURATION TO 83%-RECOVERED WITH DEEP BREATHING AND REST QUICKLY. STATES IS WORRIED AND ANXIOUS REGARDING HOW QUICKLY HE CAN DESAT. REASSURANCE GIVEN. EXPLAINED PLAN OF CARE
[2020-06-26 18:04] LABS: Vancomycin, Trough 9.3 ug/mL (5.0-10.0)
--- NOTE | 2020-06-26 19:00 | NUR ---
REMAINS UP IN CHAIR EATING AND WORKING ON COMPUTER. STATES DOING WELL. STATES XANAX DID HELP WITH ANXIETY. RESP RATE IMPROVED. CONTINUE TO MONITOR
--- NOTE | 2020-06-26 20:32 | NUR ---
ASSUMED CARE AT 1900 PT IS ALERT/ORIENTED X4 AND IS ABLE TO MAKE NEEDS KNOW. PT UP IN CHAIR WATCHING TV DURING ASSESSMENT. CURRENTLY ON AIRVO AT 45L/48%. WITH ACTIVITY OF TRANSFERING FROM CHAIR TO BED AND WITH PROLONGED TALKING, PT WILL DESATURATE TO HIGH 70'S/LOW 80'S. RECOVERY TAKES ABOUT 5MIN OR LONGER AND UP TO THE LOW 90'S. PT UNDERSTANDS AND DEMINSTRATES HOW TO TAKE DEEP BREATHS THROUGH HIS NOSE. PT HAS NONPRODUCTIVE, DRY, HACKING COUGH, AWAITING SPUTUM SAMPLE TO SEND. PT ALSO COMPLAIN OF 8/10 NECK PAIN, PRN NORCO GIVEN AND HELPFUL. AFIBRILE. HR 90-110, BP STABLE. USES URINAL AT BEDSIDE. IS GOING TO ATTEMPT TO GET SOME SLEEP NOW. SEE SHIFT ASSESSMENT FOR FULL ASSESSMENT.
[2020-06-27 04:29] LABS: BASOPHILS ABSOLUTE AUTO 0.05 K/mm3 (0.00-0.23); BASOPHILS PERCENT AUTO 0 % (0-2); EOSINOPHILS ABSOLUTE AUTO 0.04 K/mm3 (0.00-0.68); EOSINOPHILS PERCENT AUTO 0 % (0-6); Hematocrit 43.9 % (37.0-53.0); Hemoglobin 14.1 g/dL (13.5-17.5); IMMATURE GRAN ABSOLUTE AUTO 0.39 K/mm3 (0.00-0.10); IMMATURE GRAN PERCENT AUTO 2 % (0-1); LYMPHOCYTES ABSOLUTE AUTO 0.85 K/mm3 (0.84-5.20); LYMPHOCYTES PERCENT AUTO 4 % (21-46); MONOCYTES ABSOLUTE AUTO 0.68 K/mm3 (0.16-1.47); MONOCYTES PERCENT AUTO 3 % (4-13); Mean Corpuscular HGB 28.7 pg (26.0-34.0); Mean Corpuscular HGB Conc 32.1 g/dL (31.5-36.5); Mean Corpuscular Volume 89 fL (80-100); Mean Platelet Volume 9.6 fL (9.1-12.4); NEUTROPHILS ABSOLUTE AUTO 19.67 K/mm3 (1.96-9.15); NEUTROPHILS PERCENT AUTO 91 % (41-73); Platelet Count 338 K/mm3 (150-400); RDW Coefficient Variation 12.1 % (11.7-14.2); RDW Standard Deviation 39.3 fL (35.1-46.3); Red Blood Cell Count 4.91 M/mm3 (4.30-5.90); White Blood Cell Count 21.68 K/mm3 (4.00-11.30)
[2020-06-27 04:45] LABS: Anion Gap 5 mmol/L (6-16); Blood Urea Nitrogen 22 mg/dL (8-24); Bun/Creatinine Ratio 27.2 (12.0-20.0); CO2, Blood 28 mmol/L (21-32); Calcium, Blood 8.5 mg/dL (8.5-10.1); Chloride, Blood 106 mmol/L (98-108); Creatinine, Blood 0.81 mg/dL (0.60-1.20); Glomerular Filtration Rate >60 (60-); Glucose, Blood 105 mg/dL (70-99); Potassium, Blood 4.4 mmol/L (3.5-5.5); Sodium, Blood 139 mmol/L (136-145)
--- NOTE | 2020-06-27 06:34 | NUR ---
END OF SHIFT SUMMARY PT ALERT/ORIENTED AND ABLE TO MAKE HIS NEEDS KNOWN. PT SLEPT FOR APPROX 6HRS. AIRVO TITRATED DOWN TO 45L/43% WHILE SLEEPING, ONCE AWAKE, PT BECAME MORE ANXIOUS AND MORE DIFFICULT TO BREATH; NOW TITRATED UP TO 45L/56%. O2 SAT DECREASE TO HIGH 70'S/LOW 80'S DURING ACTIVITY; PT ABLE TO RECOVER UP TO LOW 90'S. AFIBRILE. HR 70-90'S. BP STABLE. PT ABLE TO USE URINAL AT BEDSIDE. WILL REPORT TO AM RN WHEN AVAILABLE.
--- NOTE | 2020-06-27 11:04 | NUR ---
PT IS TALKING ON PHONE AT EARLY AM ASSESSEMT AND WITH PROLONGED TALKING AND THEN EATING PT WOULD DESAT, BUT WITH FOCUSSED REST PT WOULD COVER SATS. PT COACHED WITH SLOWING AND DEEPENING BREATHING PATTERNS HE DEFAULTS TO RAPPIND INEFFECTIVE PANTING. PT RESPONDED TO EDUCATION. BASE CRACKLES NOTED. AIRVO SETTINGS NOTED.
--- NOTE | 2020-06-27 11:07 | NUR ---
APPROX. 1000... PT PLACED ON BIPAP 10/5 AT 40% AND PT IS TOLERATING WELL. PT IS TIRING WITH THE PROTRACTED NATURE OF DISEASE BUT SEEMS TO RESPOND TO EDUCATIONA AND FATIGUED BUT MOTIVATED FOR RECOVERY. PT HAS TAKEN PO WELL AND IS NOT HAVING ANY DIFFICULTY VOIDING.
--- NOTE | 2020-06-27 13:53 | NUR ---
PT HAS DONE WELL WITH BIPAP AND TOLERATED AIRVO BREAK W/O DESAT. PT AGAIN PLACE ON BIPAP AND GOTTEN UP TO CHAIR TOLERATING WELL. FAMILY SCHEDULED TO COME IN AND VISIT MARY.
--- NOTE | 2020-06-27 15:37 | NUR ---
PT CONT. UP IN CHAIR AND NOW ON AIRVO FOR LAST 1 HOUR AND SATS REMAIN 95-97% EVEN AFTER EATING, VISITING, & TALKING ON THE PHONE. FAMILY CONT. TO VISIT.
--- NOTE | 2020-06-27 18:35 | NUR ---
PT REMAINS UP IN CHAIR AND HAS CHANGED BACK NOW TO BIPAP AT 10/5 AT 40% AND TOLERATING WELL. PT CONT TO HAVE SOME VARRIABLE LOCATION L CHEST PAIN WITH DEEP INSPIRATION THAT HE IS REFUSING PAIN MEDS FOR NOW AND ADDRESS WITH NIGHT RN FOR PAIN AND SLEEP MANNAGEMENT. PT HAS EATEN WELL THIS SHIFT THIS SHIFT WITH GOOD I/O. OVER ALL PT HAS MAINTAINED TODAY WITH SL IMPROVEMENTS AND RESTING WELL IN CHAIR.
--- NOTE | 2020-06-27 19:47 | NUR ---
ASSUMPTION OF CARE RECEIVED REPORT FROM MARIA ELENA MITCHELL AT 191. ASSUMED CARE OF PATIENT. PATIENT SITTING UP IN CHAIR WITH BIPAP 10/5 FIO2 40% SATS ABOVE 95%. TOLERATING WELL. ASSISTED BACK TO BED AT 194, PATIENT AMBULATED INDEPENDENTLY WITH STEADY GAIT, DENIED DISCOMFORTS DURING AMBULATION. RN MONITORED LINES AND CHORDS. VITALS STABLE, PATIENT REQUESTED AIRVO, BIPAP REMOVED AND AIRVO PLACED 45L AND 46%. SATS MAINTAINED ABOVE 95%. ORDERS REVIEWED, WILL TREAT PRESCRIBED, CALL LIGHT IN REACH.
[2020-06-27 20:38] LABS: Vancomycin, Trough 13.4 ug/mL (5.0-10.0)
--- NOTE | 2020-06-27 22:21 | NUR ---
PAIN NOTIFIED DR. BUSTILLO AT 2150 VIA TELEPHONE OF PATIENT'S PAIN REPORTS. REPORTED CURRENT MEDICATIONS GIVEN, PATIENT'S DESCRIPTION OF PAIN, AND INCREASED IN SEVERITY AFTER REPOSITIONING FROM CHAIR TO BED. RECEIVED ORDERS FOR FENTANYL IV. GIVEN CHARTED, PATIENT WITH DECREASE IN PAIN. BIPAP PLACED 10/5, FIO2 45%, SATS ABOVE 95%. PATIENT TOLERATING AT THIS TIME. WILL CONTINUE TO MONITOR. CALL LIGHT IN REACH.
--- NOTE | 2020-06-27 22:47 | NUR ---
PAIN UPDATE PATIENT REPORTING PAIN MUCH BETTER AT REST BUT 8/10 WITH ACTIVITY. STILL TOLERATING BIPAP WELL. PATIENT STATED HE WANTED TO "LET THIS RIDE FOR A WHILE" EDUCATED PATIENT TO USE CALL LIGHT IF HIS PAIN INCREASED OR BIPAP WAS INTOLERABLE. PATIENT VERBALLY AGREED. VITALS REMAIN STABLE. CALL LIGHT IN REACH.
--- NOTE | 2020-06-27 23:58 | NUR ---
REASSESSMENT PATIENT WITH NO ACUTE CHANGES FROM INITIAL ASSESSMENT. CONTINUES WITH 9/10 PAIN DESCRIBED SHARP, INCREASES WITH DEEP BREATHING, ALSO FELT INCREASE IN PAIN WHEN PRESSURE TO LEFT RIBS. PATIENT WITH SHALLOW BREATHING, UNABLE TO CHANGE POSITIONS. REPORTED THESE FINDINGS TO DR. BUSTILLO, RECEIVED NEW ORDERS WILL TREAT PRESCRIBED. PATIENT REQUESTED A BREAK FROM THE BIPAP, AIRVO PLACED 45L, 46%. FIO2, SATS ABOVE 95%. PATIENT REMAINS PLEASANT, THANKFUL FOR CARE, AND CONTINUES TO SAY "LETS JUST LET THIS RIDE A BIT LONGER". EDUCATED PATIENT REGARDING THE BENEFITS OF DEEP BREATHING AND REPOSITIONING. PATIENT VERBALLY AGREED. PATIENT TO CALL WITH ANY CHANGES TO PAIN, CALL LIGHT IN REACH.
--- NOTE | 2020-06-28 00:59 | NUR ---
PAIN UPDATE PATIENT REPOSITIONED WITH HOB AT A 90 DEGREE ANGLE. PATIENT STATED IT WAS MORE COMFORTABLE THAN BEING ON HIS BACK OR SIDE. REPLACED AIRVO WITH BIPAP 10/5, 45% FIO2, SATS AT 94%. PATIENT SAID FENTANYL WAS INEFFECTIVE BUT WAS TOLERATING THIS POSITION AND BIPAP AT THIS POINT. PATIENT WANTS TO GIVE THE REPOSITIONING SOME TIME TO WORK BEFORE ANY MORE PAIN MEDICATION IS GIVEN. PATIENT CONTINUES TO STATE PAIN IS ONLY WHEN BREATHING, AND ONLY ON LEFT SIDE. DENIES ANY RIGHT SIDE DISCOMFORTS. VITALS REMAIN STABLE. WILL CONTINUE TO MONITOR, CALL LIGHT IN REACH.
--- NOTE | 2020-06-28 02:03 | NUR ---
PAIN UPDATE PATIENT LAYING ON LEFT SIDE IN BED. AIRVO 45L, 46%, FIO2 97%. EYES CLOSED, NO S/S OF DISTRESS. WILL CONTINUE TO MONITOR. CALL LIGHT IN REACH.
[2020-06-28 03:30] LABS: BASOPHILS ABSOLUTE AUTO 0.05 K/mm3 (0.00-0.23); BASOPHILS PERCENT AUTO 0 % (0-2); EOSINOPHILS ABSOLUTE AUTO 0.06 K/mm3 (0.00-0.68); EOSINOPHILS PERCENT AUTO 0 % (0-6); Hemoglobin 13.6 g/dL (13.5-17.5); IMMATURE GRAN ABSOLUTE AUTO 0.38 K/mm3 (0.00-0.10); IMMATURE GRAN PERCENT AUTO 2 % (0-1); LYMPHOCYTES ABSOLUTE AUTO 0.68 K/mm3 (0.84-5.20); LYMPHOCYTES PERCENT AUTO 3 % (21-46); MONOCYTES ABSOLUTE AUTO 0.72 K/mm3 (0.16-1.47); MONOCYTES PERCENT AUTO 3 % (4-13); Mean Corpuscular HGB 28.8 pg (26.0-34.0); Mean Corpuscular HGB Conc 32.4 g/dL (31.5-36.5); Mean Corpuscular Volume 89 fL (80-100); Mean Platelet Volume 9.6 fL (9.1-12.4); NEUTROPHILS ABSOLUTE AUTO 21.49 K/mm3 (1.96-9.15); NEUTROPHILS PERCENT AUTO 92 % (41-73); Platelet Count 302 K/mm3 (150-400); RDW Standard Deviation 38.8 fL (35.1-46.3); Red Blood Cell Count 4.72 M/mm3 (4.30-5.90); White Blood Cell Count 23.38 K/mm3 (4.00-11.30)
--- NOTE | 2020-06-28 03:36 | NUR ---
PAIN RN TO ROOM TO DRAW LABS, PATIENT OPENED EYES AND STATED HE WAS STILL PAINFUL AND ANXIOUS. PATIENT LAYING ON RIGHT SIDE, CLOSED EYES AND BEGAN RESTING COMFORTABLY. VITALS WERE STABLE. RN MEDICATED CHARTED, PATIENT EASILY AWOKE AND THEN CLOSED EYES AND BEGAN RESTING AGAIN. CALL LIGHT IN REACH.
--- NOTE | 2020-06-28 04:00 | NUR ---
REASSESSMENT NO ACUTE CHANGES FROM PREVIOUS ASSESSMENT. PATIENT REMAINS WITH EYES CLOSED, RESTING ON RIGHT SIDE, NO S/S OF DISTRESS. VITALS STABLE. CALL LIGHT IN REACH.
--- NOTE | 2020-06-28 06:22 | NUR ---
SHIFT SUMMARY PATIENT WITH CONTINUED 9/10 PLEURITIC PAIN REPORTED TO LEFT SIDE ONLY WHEN BREATHING. UNABLE TO TOLERATE PRONING, OR BIPAP. REPORTED THESE CONCERNS TO DR. BUSTILLO TWICE DURING NIGHT. MEDICATED PATIENT CHARTED. AROUND 0300 PATIENT BECAME COMFORTABLE AND BEGAN TO REST WITH EYES CLOSED, RESP E/U, VITALS STABLE CHARTED. AIRVO 45L, 45%. SATS ABOVE 95%. PATIENT EASILY AWOKE AT 0600 AND STATED HE FELT COMFORTABLE AT THIS TIME AND WANTED TO REMAIN IN HIS CURRENT POSITION ON FAR RIGHT SIDE. WILL CONTINUE TO MONITOR AND REPORT TO ONCOMING RN.
--- NOTE | 2020-06-28 07:30 | NUR ---
ASSUMED CARE PT SLEEPING, DID NOT REST WELL LAST NIGHT, STILL C/O PLEURIC PAIN OVERNIGHT. NO PAIN MEDICATION HAS HELPED SO FAR. PT ON AIRVO 45L @ 45%. PT/OT TO WORK WITH PT TODAY
--- NOTE | 2020-06-28 09:30 | NUR ---
PT STATES THAT HE HAS AN ISSUE WITH FOOD GETTING STUCK IN HIS ESOPHOGUS SEVERAL TIMES A YEAR. HE IS HAVING THAT PROBLEM NOW AND FEELS VERY PANICKY. HE FEELS LIKE HE IS GOING TO HAVE A HUGE PROBLEM IN A FEW MINUTES. TORADOL GIVEN FOR PAIN, O2 SATS IN THE 80'S, SO FIO2 TURNED UP AND CHARGE NURSE IN ROOM ALONG WITH RESP THERAPIST. ATIVAN IV ALSO GIVEN FOR HIS ANXIETY. PT CONTINUES TO SPIT HIS SALIVA OUT AND IS SHALLOW/RAPID BREATHING AT THIS TIME. O2 SATURATION IMPROVING AND DR VILLA WANTS US TO KEEP HIS FIO2 UP TODAY FOR THE POSSIBLE PNEUMOTHORAX. EVENTUALLY PT CALMED DOWN AND WAS ABLE TO TAKE A SIP OF WATER WITH NO ISSUES. PT VERY APPRECIATIVE OF ALL WE HAVE DONE AND GETS A LITTLE TEARFUL. PT NOW RESTING IN BED, O2 SAT'S ARE IN THE 90'S AND BP IS GOOD. RR RATE HAS DECREASED FORM THE 40'S TO THE 20'S.
--- NOTE | 2020-06-28 18:28 | NUR ---
PT REMAINED STABLE AFTER INCIDENT THIS MORNING. PT INSISTS ON PROTEIN DRINKS SINCE THIS MORNINGS ESOPHOGEAL PROBLEM. OVER OXYGENATION CONTINUES, TO HELP WITH REABSORBSION OF THE SMALL PNEUMOTHORAX NOTED IN THE RIGHT LUNG ON CHEST XRAY THIS MORNING. BLOOD PRESSURES REMAIN STABLE, RESP RATE 16-32, HEART RATE STABLE. ANTIBIOTICS CONTINUE. DO NOT PUT PATIENT ON BIPAP AT THIS TIME. REPEAT XRAY ORDERED. PT VERY APPRECIATIVE OF ALL CARE, DAUGHTER CAME TO VISIT AND BROUGHT US CHOCOLATE.
--- NOTE | 2020-06-28 19:15 | NUR ---
ASSUMPTION OF CARE RECEIVED REPORT FROM LUIS MITCHELL. ASSUMED CARE OF PATIENT, PATIENT PRONING, STATED NO DISCOMFORTS AT THIS TIME. AIRVO 65L AND 95% WITH SATS ABOVE 95%. VITALS STABLE. DISCUSSED PLAN WITH PATIENT REGARDING WHEN NEXT DOSE OF TORADOL WAS DUE AND TO KEEP O2 LEVELS THE SAME THROUGH THE NIGHT. WILL REVIEW ORDERS AND TREAT PRESCRIBED.
--- NOTE | 2020-06-29 | NUR ---
REASSESSMENT NO ACUTE CHANGES FROM INITIAL ASSESSMENT. PATIENT DENIES PAIN, VITALS STABLE. REPOSITIONING SELF, ENCOURAGED PRONING AGAIN. AIRVO SETTINGS UNCHANGES. CALL LIGHT IN REACH.
[2020-06-29 03:57] LABS: BASOPHILS ABSOLUTE AUTO 0.05 K/mm3 (0.00-0.23); BASOPHILS PERCENT AUTO 0 % (0-2); EOSINOPHILS ABSOLUTE AUTO 0.08 K/mm3 (0.00-0.68); EOSINOPHILS PERCENT AUTO 0 % (0-6); Hematocrit 41.2 % (37.0-53.0); Hemoglobin 13.3 g/dL (13.5-17.5); IMMATURE GRAN ABSOLUTE AUTO 0.45 K/mm3 (0.00-0.10); IMMATURE GRAN PERCENT AUTO 2 % (0-1); LYMPHOCYTES ABSOLUTE AUTO 0.77 K/mm3 (0.84-5.20); LYMPHOCYTES PERCENT AUTO 4 % (21-46); MONOCYTES ABSOLUTE AUTO 0.75 K/mm3 (0.16-1.47); MONOCYTES PERCENT AUTO 4 % (4-13); Mean Corpuscular HGB 28.9 pg (26.0-34.0); Mean Corpuscular HGB Conc 32.3 g/dL (31.5-36.5); Mean Corpuscular Volume 89 fL (80-100); Mean Platelet Volume 9.6 fL (9.1-12.4); NEUTROPHILS ABSOLUTE AUTO 18.31 K/mm3 (1.96-9.15); NEUTROPHILS PERCENT AUTO 90 % (41-73); Platelet Count 293 K/mm3 (150-400); RDW Coefficient Variation 11.9 % (11.7-14.2); RDW Standard Deviation 38.6 fL (35.1-46.3); Red Blood Cell Count 4.61 M/mm3 (4.30-5.90); White Blood Cell Count 20.41 K/mm3 (4.00-11.30)
--- NOTE | 2020-06-29 04:00 | NUR ---
REASSESSMENT NO ACUTE CHANGES FROM PREVIOUS ASSESSMENT. PATIENT DENIES DISCOMFORTS OR NEEDS. VITALS STABLE, AIRVO IN PLACE WITH SATS ABOVE 95%. PATIENT REPOSITIONING SELF IN BED INDEPENDENTLY. CALL LIGHT IN REACH.
[2020-06-29 04:19] LABS: Anion Gap 5 mmol/L (6-16); Blood Urea Nitrogen 31 mg/dL (8-24); Bun/Creatinine Ratio 41.2 (12.0-20.0); CO2, Blood 29 mmol/L (21-32); Calcium, Blood 8.4 mg/dL (8.5-10.1); Chloride, Blood 104 mmol/L (98-108); Creatinine, Blood 0.75 mg/dL (0.60-1.20); Glomerular Filtration Rate >60 (60-); Glucose, Blood 109 mg/dL (70-99); Potassium, Blood 4.3 mmol/L (3.5-5.5); Sodium, Blood 138 mmol/L (136-145)
--- NOTE | 2020-06-29 06:05 | NUR ---
SHIFT SUMMARY PATIENT TOLERATED AIRVO THROUGH NIGHT, REPOSITIONED SELF INDEPENDENTLY WITH NO DISCOMFORTS. VITALS STABLE. MEDICATIONS ADMINISTERED PRESCRIBED AND CHARTED. WILL CONTINUE TO MONITOR AND REPORT OFF TO ONCOMING RN.
--- NOTE | 2020-06-29 10:12 | NUR ---
Dr Garcia in to see patient. Provider stated to titrate SpO2 to patient's need. Pt is now at 40 LPM and 60% FiO2. SpO2 90% or greater. Pt up to bedside commode. Pt stated recovery was more difficult.
[2020-06-29 13:49] LABS: Vancomycin, Trough 19.1 ug/mL (5.0-10.0)
--- NOTE | 2020-06-29 18:54 | NUR ---
SUMMARY Pt A&O x 4. Answers questions. Follows commands. Verbalizes needs. Pleasant and coopertive with care. Independent in room. Dyspnea with exertion but steady on feet. Initially on AirVO, 40 LPM and 95% FiO2 for hyperoxygenation as treatment for potential pneumothorax. After Dr Garcia in to see patient, changed plan to titrated O2 as pt requires it. Currently at 40 LPM and 50% FiO2. SpO2 90% or greater. Pt's biggest concern today is being "too afraid" to eat, after he choked on oatmeal yesterday secondary to espohageal stricture. Pt spoke to grinding wheel facer and diet was chosen that pt is able to better tolerate. Pt has eaten all of his lunch and dinner trays and drinks Ensure as well as protein shakes brought in by family. Pt voids in urinal and has bowel movements in commode, independently. Bed in lowest position. Call light in reach. Will continue to closely monitor until care handoff and bedside report with oncoming RN.
--- NOTE | 2020-06-29 21:14 | NUR ---
Care Assumed 1900 Pt resting in bed with AIRVO 40 L, FIO2 52%, SPO2 > 90% @ rest. Lung sounds clear/dim. VSS. NSR. Pt is A/O to location, event, time/date, and is cooperative. Able to transfer self from chair to bed without assitance. States having neck/back/knee pain, treated per emar. Educated on proning, pt states he will try to prone later on in the night. Call light in reach.
--- NOTE | 2020-06-29 23:56 | NUR ---
Update Pt remains on Airvo, settings unchanged. Pt states he has not been able to sleep for the past few days. Appears anxious, sat with pt and discussed care. Pt states in the past Xanax 0.25 mg has been helpful. Treated per emar. Will continue to monitor.
--- NOTE | 2020-06-30 03:17 | NUR ---
Airvo patient interface malfuncation Pts interface failed, SPO2 decreased to 80%. Pt with labored breathing and anxious. Placed on high flow NC, 15 L with good effect SPO2 > 90%. Airvo patient interface replaced and pts SPO2 improved to 97%. Pts anxiety treated per emar with Ativan. NSR.
[2020-06-30 05:31] LABS: BASOPHILS ABSOLUTE AUTO 0.07 K/mm3 (0.00-0.23); BASOPHILS PERCENT AUTO 0 % (0-2); EOSINOPHILS ABSOLUTE AUTO 0.18 K/mm3 (0.00-0.68); EOSINOPHILS PERCENT AUTO 1 % (0-6); Hematocrit 42.7 % (37.0-53.0); IMMATURE GRAN ABSOLUTE AUTO 0.56 K/mm3 (0.00-0.10); IMMATURE GRAN PERCENT AUTO 3 % (0-1); LYMPHOCYTES ABSOLUTE AUTO 1.05 K/mm3 (0.84-5.20); LYMPHOCYTES PERCENT AUTO 5 % (21-46); MONOCYTES ABSOLUTE AUTO 0.86 K/mm3 (0.16-1.47); MONOCYTES PERCENT AUTO 4 % (4-13); Mean Corpuscular HGB Conc 32.8 g/dL (31.5-36.5); Mean Corpuscular Volume 88 fL (80-100); Mean Platelet Volume 9.9 fL (9.1-12.4); NEUTROPHILS ABSOLUTE AUTO 19.36 K/mm3 (1.96-9.15); NEUTROPHILS PERCENT AUTO 88 % (41-73); Platelet Count 355 K/mm3 (150-400); RDW Coefficient Variation 11.9 % (11.7-14.2); RDW Standard Deviation 38.1 fL (35.1-46.3); Red Blood Cell Count 4.83 M/mm3 (4.30-5.90); White Blood Cell Count 22.08 K/mm3 (4.00-11.30)
--- NOTE | 2020-06-30 05:32 | NUR ---
Shift Summary Pt remains on Airvo 40 L, FIO2 52%, SPO2 > 90%. Pt has been anxious t/o shift in regards to when he will be discharged or even able to walk in the room. Pt quickly destats of 87% during turns/movement and recovery is slow. Pt denies pain but states he is unable to sleep, will report to oncoming shift. Ativan had good effect with helping pt rest for 1-2 hours. NSR. VSS.
[2020-06-30 05:52] LABS: Anion Gap 5 mmol/L (6-16); Blood Urea Nitrogen 31 mg/dL (8-24); Bun/Creatinine Ratio 45.3 (12.0-20.0); CO2, Blood 28 mmol/L (21-32); Calcium, Blood 8.5 mg/dL (8.5-10.1); Chloride, Blood 103 mmol/L (98-108); Creatinine, Blood 0.69 mg/dL (0.60-1.20); Glomerular Filtration Rate >60 (60-); Glucose, Blood 101 mg/dL (70-99); Potassium, Blood 4.6 mmol/L (3.5-5.5); Sodium, Blood 136 mmol/L (136-145)
--- NOTE | 2020-06-30 07:15 | NUR ---
Assumed care of pt at 0700. Bedside report received from Aneesh MITCHELL. Pt A&O x 4. Answers questions. Follows commands. Verbalizes needs. Pleasant and cooperative with care. Pt states he is feeling anxious that he has not had much sleep for several days. Also states he is feeling depressed, including "I think I'm just hiding it because that's what dads do". Pt fixated on fact that he has not slept for several days. Pt on AirVo 40 LPM and 50% FiO2. SpO2 90% or greater.
--- NOTE | 2020-06-30 08:15 | NUR ---
Patient up to chair for breakfast. SpO2 decreased and required AirVo titration to 50 LPM and 70% FiO2. SpO2 90% or greater. RR 40s. Respirations labored. Will continue to closely reassess.
--- NOTE | 2020-06-30 10:00 | NUR ---
Pt up to bedside commode. Did not tolerate well. Required FiO2 increase to 95%. Case discussed with Dr Luke and RT Perlita. Pt now ICU status.
--- NOTE | 2020-06-30 13:00 | NUR ---
Pt doing much better after receiving ativan. HR decreased, now low 100s instead of 120s. Pt ate lunch, did not have as much of appetite. Pt bathed self. Now back in bed with plan to self-prone.
--- NOTE | 2020-06-30 19:12 | NUR ---
Pt napped this afternoon and self-proned. Able to decrease AirVO FiO2 from 95% to 40%. Pt's oxygen requirements decreased with management of anxiety. Pt's spouse visited in room this afternoon. Pt in much better spirits and able to transfer from bed to recliner without decrease in SpO2. Additionally, respirations are not as labored as they were this morning. Pt has had excellent appetite today. SR-ST with heart rate ranging from 95-105. Report given to oncoming RNAneesh.
--- NOTE | 2020-06-30 21:47 | NUR ---
Care Assumed 1900 Pt sitting in chair using iPad at 1900. Airvo settings of 50 LPM, FIO2 38%, SPO2 > 90%. Pt is A/O to event, location, and year. Cooperative and following directions. Pt is anxious about not being able to sleep for the past few days. Medicated per emar to help with sleep. Able to ambulate from chair to bed without assistance, SPO2 > 90%, RR elevated during transfer. Sat with pt and discussed current care/treatments, slight improvement in anxiety noted. Treated with PRN ativan for anxiety as well. Pt remains in NSR, HR 110-80's, and BP stable. Call light within reach.
[2020-07-01 05:06] LABS: BASOPHILS ABSOLUTE AUTO 0.11 K/mm3 (0.00-0.23); BASOPHILS PERCENT AUTO 1 % (0-2); EOSINOPHILS ABSOLUTE AUTO 0.08 K/mm3 (0.00-0.68); EOSINOPHILS PERCENT AUTO 0 % (0-6); Hematocrit 44.6 % (37.0-53.0); Hemoglobin 14.6 g/dL (13.5-17.5); IMMATURE GRAN ABSOLUTE AUTO 0.91 K/mm3 (0.00-0.10); IMMATURE GRAN PERCENT AUTO 4 % (0-1); LYMPHOCYTES ABSOLUTE AUTO 1.11 K/mm3 (0.84-5.20); LYMPHOCYTES PERCENT AUTO 5 % (21-46); MONOCYTES ABSOLUTE AUTO 0.83 K/mm3 (0.16-1.47); MONOCYTES PERCENT AUTO 4 % (4-13); Mean Corpuscular HGB 28.7 pg (26.0-34.0); Mean Corpuscular HGB Conc 32.7 g/dL (31.5-36.5); Mean Corpuscular Volume 88 fL (80-100); Mean Platelet Volume 9.5 fL (9.1-12.4); NEUTROPHILS ABSOLUTE AUTO 19.07 K/mm3 (1.96-9.15); NEUTROPHILS PERCENT AUTO 86 % (41-73); Platelet Count 394 K/mm3 (150-400); RDW Coefficient Variation 11.9 % (11.7-14.2); RDW Standard Deviation 38.5 fL (35.1-46.3); Red Blood Cell Count 5.08 M/mm3 (4.30-5.90); White Blood Cell Count 22.11 K/mm3 (4.00-11.30)
[2020-07-01 05:25] LABS: Anion Gap 7 mmol/L (6-16); Blood Urea Nitrogen 26 mg/dL (8-24); Bun/Creatinine Ratio 32.7 (12.0-20.0); CO2, Blood 27 mmol/L (21-32); Chloride, Blood 102 mmol/L (98-108); Glomerular Filtration Rate >60 (60-); Glucose, Blood 115 mg/dL (70-99); Magnesium, Blood 2.4 mg/dL (1.6-2.4); Phosphorus, Blood 3.6 mg/dL (2.5-4.9); Potassium, Blood 4.6 mmol/L (3.5-5.5); Sodium, Blood 136 mmol/L (136-145); Vancomycin, Trough 15.3 ug/mL (5.0-10.0)
--- NOTE | 2020-07-01 06:35 | NUR ---
Shift Summary Pts AIRVO increased to 50 LPM and FIO2 49%. Pt had episode of decreased SPO2 to 77% during turns/coughing. Resp therapy at this time changed setting. Since settings change pt has been able to change positions without decreasing to low 80's. Otherwise, pt has been able to sleep for most of the shift. States he feels better rested but continues to be anxious about his breathing. Pt states, "i feel like I am not pulling enough volumes." Sat with pt and answered all questions/concerns. Pt with decreased anxiety after and states he will sit in chair/prone t/o the day today. VSS. NSR. Will report to oncoming shift.
--- NOTE | 2020-07-01 10:15 | NUR ---
Assumed care of pt at 0700. Bedside report received from Aneesh MITCHELL. Pt A&O x 4. Answers questions. Follows commands. Verbalizes needs. Pt pleasant and cooperative with care. Anxious. States that his phone's face ID doesn't recognize him anymore due to weight loss, which he has mentioned this several times already. Patient states he feels he has been in the hospital too long and doesn't feel like he is getting better. Pt afraid to mobilize. Refused to sit up in chair for breakfast but was willing to do so after breakfast. Tolerated well, SpO2 did not drop.
--- NOTE | 2020-07-01 18:42 | NUR ---
SUMMARY No acute changes since initial assessment. Pt remains A&O x 4. Pleasant and cooeprative with care. Pt tolerated out of bed activity much better today. Pt sat up in recliner for about four hours and then proned for about three hours. AirVO requirements are 50 LPM and 40% FiO2. SpO2 90% or greater. Will continue to closely monitor until care handoff and bedside report with oncoming RN.
--- NOTE | 2020-07-01 22:00 | NUR ---
Care Assumed 1900 Pt sitting in bed facetiming his mother. Pt is A/O to location, event, and date. Calm and cooperative. Airvo settings of 50 LPM, FIO2 38%, SPO2 > 90%. Pt appears in better spirits tonight. VSS. NSR. Call light within reach.
--- NOTE | 2020-07-02 01:09 | NUR ---
Update Pt proned to left side, sleeping. Airvo settings 50 LPM, FIO2 38%, SPO2 > 90%. VSS. NSR.
[2020-07-02 04:52] LABS: BASOPHILS ABSOLUTE AUTO 0.12 K/mm3 (0.00-0.23); BASOPHILS PERCENT AUTO 1 % (0-2); EOSINOPHILS ABSOLUTE AUTO 0.27 K/mm3 (0.00-0.68); EOSINOPHILS PERCENT AUTO 1 % (0-6); Hematocrit 44.1 % (37.0-53.0); Hemoglobin 14.5 g/dL (13.5-17.5); IMMATURE GRAN ABSOLUTE AUTO 1.04 K/mm3 (0.00-0.10); IMMATURE GRAN PERCENT AUTO 5 % (0-1); LYMPHOCYTES ABSOLUTE AUTO 1.38 K/mm3 (0.84-5.20); LYMPHOCYTES PERCENT AUTO 6 % (21-46); MONOCYTES ABSOLUTE AUTO 0.85 K/mm3 (0.16-1.47); MONOCYTES PERCENT AUTO 4 % (4-13); Mean Corpuscular HGB Conc 32.9 g/dL (31.5-36.5); Mean Corpuscular Volume 88 fL (80-100); Mean Platelet Volume 9.5 fL (9.1-12.4); NEUTROPHILS ABSOLUTE AUTO 19.03 K/mm3 (1.96-9.15); NEUTROPHILS PERCENT AUTO 84 % (41-73); Platelet Count 353 K/mm3 (150-400); RDW Coefficient Variation 12.1 % (11.7-14.2); RDW Standard Deviation 38.8 fL (35.1-46.3); White Blood Cell Count 22.69 K/mm3 (4.00-11.30)
[2020-07-02 05:12] LABS: Anion Gap 5 mmol/L (6-16); Blood Urea Nitrogen 29 mg/dL (8-24); Bun/Creatinine Ratio 39.9 (12.0-20.0); CO2, Blood 27 mmol/L (21-32); Calcium, Blood 8.9 mg/dL (8.5-10.1); Chloride, Blood 102 mmol/L (98-108); Creatinine, Blood 0.73 mg/dL (0.60-1.20); Glomerular Filtration Rate >60 (60-); Glucose, Blood 110 mg/dL (70-99); Magnesium, Blood 2.3 mg/dL (1.6-2.4); Phosphorus, Blood 3.7 mg/dL (2.5-4.9); Potassium, Blood 4.8 mmol/L (3.5-5.5); Sodium, Blood 134 mmol/L (136-145)
--- NOTE | 2020-07-02 05:19 | NUR ---
Shift Summary Pt continues to be on Airvo 50LPM, FIO2 39%, SPO2 > 90%. Has been resting T/O shift and partially proning to left/right side. VSS. NSR. Has been able to use the bedside urinal without SPO2 decreasing below 90%. Will report to oncoming shift.
--- NOTE | 2020-07-02 06:04 | NUR ---
Update, FIO2 increased to 61%. Pts SPO2 decreased to 74%, HR increased to 90's, and pt has labored breathing. This occured after pt states he was trying to find a comfortable position in bed and using the urinal. Airvo settings of 50 LPM and FIO2 increased to 61%, with good effect. Sat with pt and coached on breathing with good effect. SPO2 increased to 96% slowly. Call light within reach. Will report to oncoming shift.
--- NOTE | 2020-07-02 09:55 | NUR ---
ASSUMED CARE RECEIVED REPORT FROM STEPHEN WADDELL. PT IS ALERT AND ORIENTED X 4, SITTING UP IN BED. ON AIRVO 50L, 61% FIO2. SPO2 94%. PT IS TALKING, AND IN A PLEASANT MOOD. STABLE BP, MAP > 65. BED LOW AND LOCKED. CALL LIGHT WITHIN REACH.
--- NOTE | 2020-07-02 11:04 | NUR ---
UPDATE PT SAT UP TO SIDE OF BED AND WAS NEEDING TO TAKE A BM. HE BECAME DYSPNEIC WITH THE MILD EXERTION, SPO2 DOWN IN THE 83-89% RANGE, AND HR WAS INCREASING INTO THE 110-140s. PT A LITTLE ANXIOUS. FIO2 TURNED UP TO 85% AT 1045, AFTER ABOUT 15 MINUTES OF RECOVERING AND A FEW MINUTES WITH THE INCREASED FIO2 - HE WAS ABLE TO RECOVER, SPO2 BACK UP INTO THE 90s% - THOUGH, HR IS IN THE 120s. PT STATES HE FEELS "MUCH BETTER" AFTER FINALLY TAKING BM AND GETTING BACK TO BED. FIO2 DOWN TO 75% AT 1100. SPO2 AT 94%.
--- NOTE | 2020-07-02 18:47 | NUR ---
SHIFT SUMMARY AFTER THE EVENT THAT IS DESCRIBED IN THE PREVIOUS NOTE, THE PT RECOVERED, AND REPOSITIONED HIMSELF TO A PRONE POSITION, WHICH HE STAYED FOR HOURS, AFTER LUNCH, TO DINNER TIME. SPO2 AT 98% DURING THIS TIME, FIO2 LOW 45%, BUT WENT BACK UP TO 60% (PER PATIENT REQUEST) WHEN THE PT SAT UP TO EAT DINNER AND ASSISTED CARLOS ON HIS OWN BED BATH. CURRENTLY, FIO2 50% WITH SPO2 MID TO HIGH 90s%. CAME IN TO VISIT DURING VISITING HOURS, AND ASSISTED OUR NEUROLOGICAL PHYSIOTHERAPIST WITH A BED BATH. PT HAS BEEN IN SINUS TACHYCARDIA FOR THE MAJORITY OF THE SHIFT, HIGH 140; BUT FOR THE MAJORITY OF THE DAY HE HAS BEEN IN THE LOW 100s. DENIES CHEST PAIN. NO OTHER MAJOR CHANGES. REPORTED OFF TO STEPHEN WADDELL. BED LOW AND LOCKED.
--- NOTE | 2020-07-02 21:04 | NUR ---
[facility] 190 Report recieved from STEPHEN Juan. Pt is sitting in bed watching T.V./on phone. A/O to location, event, date, and is calm/cooperative. Airvo at 50 LPM, FIO2 50%, SPO2 > 90%. Pt is anxious about his increased FIO2 requirements but has a positive output on recovery. Sinus Tach ( HR 90-110's). SBP elevated to 150-160's when talking/on phone but decreased to 112/67 when resting. Call light within reach.
[2020-07-03 05:11] LABS: BASOPHILS ABSOLUTE AUTO 0.12 K/mm3 (0.00-0.23); BASOPHILS PERCENT AUTO 1 % (0-2); EOSINOPHILS ABSOLUTE AUTO 0.09 K/mm3 (0.00-0.68); EOSINOPHILS PERCENT AUTO 0 % (0-6); Hematocrit 43.2 % (37.0-53.0); Hemoglobin 14.7 g/dL (13.5-17.5); IMMATURE GRAN ABSOLUTE AUTO 1.18 K/mm3 (0.00-0.10); IMMATURE GRAN PERCENT AUTO 5 % (0-1); LYMPHOCYTES ABSOLUTE AUTO 1.33 K/mm3 (0.84-5.20); LYMPHOCYTES PERCENT AUTO 6 % (21-46); MONOCYTES ABSOLUTE AUTO 0.74 K/mm3 (0.16-1.47); MONOCYTES PERCENT AUTO 3 % (4-13); Mean Corpuscular HGB 29.8 pg (26.0-34.0); Mean Corpuscular Volume 87 fL (80-100); Mean Platelet Volume 9.7 fL (9.1-12.4); NEUTROPHILS ABSOLUTE AUTO 19.64 K/mm3 (1.96-9.15); NEUTROPHILS PERCENT AUTO 85 % (41-73); Platelet Count 335 K/mm3 (150-400); RDW Standard Deviation 38.5 fL (35.1-46.3); Red Blood Cell Count 4.94 M/mm3 (4.30-5.90)
[2020-07-03 05:25] LABS: Anion Gap 8 mmol/L (6-16); Blood Urea Nitrogen 28 mg/dL (8-24); Bun/Creatinine Ratio 39.7 (12.0-20.0); CO2, Blood 24 mmol/L (21-32); Calcium, Blood 8.6 mg/dL (8.5-10.1); Chloride, Blood 104 mmol/L (98-108); Creatinine, Blood 0.71 mg/dL (0.60-1.20); Glomerular Filtration Rate >60 (60-); Glucose, Blood 160 mg/dL (70-99); Magnesium, Blood 2.2 mg/dL (1.6-2.4); Phosphorus, Blood 3.5 mg/dL (2.5-4.9); Potassium, Blood 4.3 mmol/L (3.5-5.5); Sodium, Blood 136 mmol/L (136-145)
[2020-07-03 05:29] LABS: BAND PERCENT MAN 1 % (0-8); BASOPHILS PERCENT MAN 0 % (0-2); EOSINOPHILS PERCENT MAN 0 % (0-6); LYMPHOCYTES ABSOLUTE MAN 1.84 K/mm3 (0.84-5.20); LYMPHOCYTES PERCENT MAN 8 % (21-46); MONOCYTES ABSOLUTE MAN 0.46 K/mm3 (0.16-1.47); MONOCYTES PERCENT MAN 2 % (4-13); NEUTROPHILS ABSOLUTE MAN 20.79 K/mm3 (1.96-9.15); SEG NEUTROPHILS PERCENT MAN 89 % (41-73); TOTAL CELLS COUNTED 100
--- NOTE | 2020-07-03 06:25 | NUR ---
Shift Summary Airvo settings: 50 LPM, FIO2 44%, SPO2 > 90%. Pt was not able to get enough sleep/rest tonight after midnight due to alarms from pumps, etc. During 0400 assessment pt states he has not been able to rest. Appears anxious because he has not been able to sleep. Treated with PO Ativan. The volume of pump alarms has been decreased to help patient sleep. Call light within reach. Explained to pt to use call light if he feels anxious or is still not able to sleep. Will report to oncoming shift. VSS. NSR.
--- NOTE | 2020-07-03 08:00 | NUR ---
Update During 0700 assessment pt found to be very anxious and emotional. Pt sitting in bed crying. Sat with pt and discussed his concerns/fears. Pt felt better after discussing future plans and making small term goals. Discussed goals for getting up to toilet instead of using bedside commode . Also, proning for longer today. Pt in better spirits after making small goals. Call light within reach.
--- NOTE | 2020-07-03 10:02 | NUR ---
PT IS A/O. SOME SLEEP DEPERAVATION AND MILD ANXIETY NOTED. PT IS HOWEVER VERY COOP AND MOTIVATED TO RECOVER DOING ALL HE IS ASKED AND MORE. PT CURRENTLY DENIES MUCH PAIN AND DECLINING ANY PAIN MEDS CURRENTLY. PT SETTINGS NOTE ON AIRVO AND CONT TO DESAT WITH EXERSION BUT WILL RECOVER W/O INCREASING O2 FLOW AT THIS TIME. VS NOTED WITH BP SL ELEVATED AND WILL FOLLOW.
--- NOTE | 2020-07-03 18:52 | NUR ---
PT HAS HAD A GOOD AFTERNOON DURING WHICH HE DID PRONING AND VISITING WITH FAMILY. PT IS NOW UP IN A CHAIR AND ALTHOUGHT HE DESAT TO MID 85 RANGE ON THE 15L HFNC, HE WAS ABLE TO RECOVER QUITE WELL UP TO NID 90 RANGE IN 3-5 MINUTES. PT STATES HE IS FEELING MUCH BETTER TODAY AND MOTIVATED TO DUE WHAT ACTIVITY HE CAN TO PROMOTE SLEEP THIS NOC.
--- NOTE | 2020-07-03 21:43 | NUR ---
SHIFT ASSESMENT ASSUMED CARE OF PT @ 1900, REPORT RECV'D FROM MARIA ELENA MITCHELL. PT ALERT AND ORIENTED, SITTING IN BEDSIDE CHAIR. PT STATES "I FEEL SO MUCH BETTER TODAY", PT APPEARS TO BE IN GOOD SPIRITS BUT STILL BECOMES DYSPNEIC RATHER QUICKLY WITH MOVEMENT FROM CHAIR TO BED. CURRENTLY ON HIFLO NC @ 15LPM c O2 SATS >90%. VSS. POWERGLIDE TO CASSANDRA, FLUSHED WITH 10CC NS. PT C/O MILD-MODERATE PAIN IN THE BACK, MEDICATED PRN PAIN MEDS. PT ALSO C/O NOT GETTING MUCH SLEEP LATELY. CALL LIGHT WITHIN REACH, WILL CONTINUE TO MONITOR CLOSELY.
[2020-07-04 03:49] LABS: Hematocrit 44.9 % (37.0-53.0); Hemoglobin 14.9 g/dL (13.5-17.5); Mean Corpuscular HGB 29.1 pg (26.0-34.0); Mean Corpuscular HGB Conc 33.2 g/dL (31.5-36.5); Mean Corpuscular Volume 88 fL (80-100); Mean Platelet Volume 9.7 fL (9.1-12.4); Platelet Count 337 K/mm3 (150-400); RDW Coefficient Variation 12.1 % (11.7-14.2); RDW Standard Deviation 38.6 fL (35.1-46.3); Red Blood Cell Count 5.12 M/mm3 (4.30-5.90); White Blood Cell Count 23.63 K/mm3 (4.00-11.30)
[2020-07-04 05:17] LABS: PCO2 Arterial 37.6 mmHg (35-45); PO2 Arterial 54.2 mmHg (80-100); pH Blood Arterial 7.47 (7.35-7.45)
[2020-07-04 05:42] LABS: BAND PERCENT MAN 7 % (0-8); BASOPHILS PERCENT MAN 0 % (0-2); EOSINOPHILS ABSOLUTE MAN 0.23 K/mm3 (0.00-0.68); EOSINOPHILS PERCENT MAN 1 % (0-6); LYMPHOCYTES ABSOLUTE MAN 0.94 K/mm3 (0.84-5.20); LYMPHOCYTES PERCENT MAN 4 % (21-46); METAMYELOCYTE ABSOLUTE MAN 0.47 K/mm3 (0.00-0.00); METAMYELOCYTE PERCENT MAN 2 % (0-0); MONOCYTES ABSOLUTE MAN 1.18 K/mm3 (0.16-1.47); MONOCYTES PERCENT MAN 5 % (4-13); MYELOCYTE ABSOLUTE MAN 0.23 K/mm3 (0.00-0.00); MYELOCYTE PERCENT MAN 1 % (0-0); NEUTROPHILS ABSOLUTE MAN 20.55 K/mm3 (1.96-9.15); SEG NEUTROPHILS PERCENT MAN 80 % (41-73); TOTAL CELLS COUNTED 100
--- NOTE | 2020-07-04 05:55 | NUR ---
SHIFT SUMMARY PT STATED HE WAS ABLE TO GET A SOLID 3-4 HOURS OF SLEEP LAST NIGHT WHICH IS MUCH BETTER THAN THE PREVIOUS NIGHTS. RT TITRATED THE HIFLOW NC FROM 15LPM DOWN TO 13LPM c O2 SATS REMAINING ABOVE 90% AT REST. PT DID C/O MILD SCRATCHY THROAT THAT RESEMBLES HOW HE FEELS WHEN HE EATS AVACADOS OR BANANAS, WHICH HE HAS A MILD ALLERGY TO. PT MEDICATED WITH ONE TIME DOSE OF BENADRYL WHICH RESOLVED THE PROBLEM. NO OTHER COMPLAINTS OR ISSUES TO NOTE, WILL CONTINUE TO MONITOR.
--- NOTE | 2020-07-04 08:47 | NUR ---
AM NOTE... ASSUMED CARE OF PT AT 0715, PT IS A&Ox4 COVID + BUT IMPROVING. PER REPORT PT WAS ON 15L HI FLOW NC, RT ENTERED THE ROOM AND WAS ABLE TO TURN HIM DOWN TO 12L. WHILE THIS RN WAS IN THE ROOM FOR HIS ASSESSMENT IT WAS TURNED DOWN TO 10l HI FLOW NC. PT'S OTHER VS STABLE AT THIS TIME. PT IS IN A GOOD MOOD AND IS ASKING ABOUT TAKING ZINC AND VITAMIN C. PROVIDER NOTIFIED, PT MAY ASK HIS FAMILY TO BRING HIS SUPPLEMENTS IN FOR HIM TO TAKE. NO EDEMA NOTED ON ASSESSMENT, L/S CLEAR T/O DIM IN THE BASES, PT BECOMES DYSPNIC W/ACTIVITY BUT RECOVERS QUICKLY. PER THE PT HE FEELS HE IS RECOVERING "EASIER THAN BEFORE" WILL CONTINUE TO MONITOR.
[2020-07-04] MEDS ORDERED: ASCO500 PO (17:58)
[2020-07-04] MEDS ORDERED: Zinc Gluconate100 MG PO (17:59)
--- NOTE | 2020-07-04 18:54 | NUR ---
SHIFT SUMMARY... PT HAS HAD A GOOD DAY, HE CONTINUES TO BE ON A NC AT 10-12L WITH O2 SATS >90%. OTHER VS STABLE. PT'S AT THE BEDSIDE FOR SEVERAL HOURS TODAY. PT'S MOOD HAS GREATLY IMPROVED FROM PREVIOUS DAYS. PT HAS BEEN UP IN THE CHAIR FOR A FEW HOURS TODAY, LINEN CHANGE WAS DONE BY CHANGE PERSON. WILL CONTINUE TO MONITOR UNTIL REPORT IS GIVEN TO ONCOMING RN.
--- NOTE | 2020-07-05 06:47 | NUR ---
SHIFT SUMMARY PT RESTED WELL THORUGH NIGHT - ABLE TO MAKE NEEDS KNOWN. ALERT AND ORIENTED. TELE SINUS TACH. SATS >90% ON 10L HIFLOW. INDEPENDENT IN ROOM. VOIDS TO URINAL - 300UOP. NO BM. ANXIOUS ABOUT O2 SATS - BUT DOES DO SELF PRONING/USE IS. NO SKIN ISSUES. VSS. CALL LIGHT WITHIN REACH, BED IN LOWEST POSITION. WILL CONTINUE TO MONITOR.
--- NOTE | 2020-07-05 18:01 | NUR ---
SHIFT SUMMARY PT IS ALERT AND ORIENTEDx4, ABLE TO SELF PRONE AND TRANSFER INDEPENDANTLY. O2 HAS BEEN BETWEEN 8-12L VIA NC. PT REPORTS HE'S FEELING BETTER OVERALL. VITALS HAVE BEEN STABLE. SINUS TACH ON THE MONITOR.
--- NOTE | 2020-07-06 00:24 | NUR ---
PT REPORTS HE SLEPT FOR APPX 2 HOURS - DENIED ANY REQUESTS AT THIS TIME. REVIEWED AM MENU WITH PATIENT, SENT TO DIETARY. PT VERY PLEASANT, COOPERATIVE WITH CARE. CALL LIGHT WITHIN REACH. BED IN LOW POSITION. FLUIDS AT BEDSIDE.
--- NOTE | 2020-07-06 05:12 | NUR ---
NO ACUTE CHANGES THIS SHIFT. PT REPORTS HE CONTINUES TO SEE IMPROVEMENT, AND REPORTS HE IS KEEPING A POSITIVE ATTITUDE - "I WILL BE ABLE TO WALK OUT OF HERE." PT HAS REMAINED ON 8L HIGH FLOW NC THROUGHOUT THE NIGHT. PT REPORTS SOB WITH EXERTION. PT REPORTS LAYING PRONE FOR INTERMITTENT PERIODS OF TIME DURING THE NIGHT. RESPIRATIONS EVEN AND UNLABORED THROUGHOUT NOC. MEDICATED X1 FOR BACK PAIN, CALL LIGHT WITHIN REACH. BED IN LOW POSITION. FLUIDS AT BEDSIDE.
--- NOTE | 2020-07-06 05:50 | NUR ---
O2 TURNED DOWN FROM 8L HIGH FLOW NC, TO 7L HIGH FLOW NC - SATS WNL. WILL CONTINUE TO MONITOR UNTIL SHIFT CHANGE.
--- NOTE | 2020-07-06 09:00 | NUR ---
ASSUMED CARE AT 0700, REPORT RECIEVED FROM ADRIANA MITCHELL. PT RESTING IN BED WITH CALL LIGHT IN REACH, IN GOOD SPIRITS. VSS, ABLE TO MOVE INDEPENDENTLY AND READY TO GO HOME
--- NOTE | 2020-07-06 18:07 | NUR ---
SHIFT SUMMARY: PT DID WELL ALL DAY, WAS GETTING UP AND EXCERSIZING ON HIS OWN. HE ONLY DESAT'D ONCE AND THAT WAS WHEN HE WAS HAVING A BM ON THE BEDSIDE COMMODE. RECOVERY WAS FAST AND NO ANXIETY. REDUCED 02 FLOW TO 6L FROM 7L AT 1630, WITH O2 STAYING ABOVE 94%. PT HAD LARGE BM TODAY, URINE OUTPUT IS GOOD AND VSS. SPOKE TO MD AND GOT PT AMBIEN TO HELP HIM SLEEP. HE HAS ONLY BEEN GETTING 3 HOURS, TOPS, AT A TIME. PT LOOKING FORWARD TO GOING HOME SOON WE WILL LET HIM. O2 ALREADY READY FOR HIM AT HOME.
--- NOTE | 2020-07-06 20:10 | NUR ---
ASSESSMENT/ASSUMED CARE PT SITTING UP IN BED TALKING ON THE PHONE. REPORTS LOW BACK PAIN /, BUT IS REFUSING PAIN MEDS AT THIS TIME. PT STATES,"I THINK I HAVE TURNED A CORNER AND I CAN SEE THE LIGHT AT THE END. I FEEL LIKE I'M DOING A LOT BETTER". PT SMILING AND TALKATIVE. MOVING SELF AROUND IN BED AND UP IN ROOM AD LUPE. LUNGS CLEAR BUT DECREASED IN THE BASES ON 6 LITERS O2 VIA NC. HARSH COUGH NOTED. SOB WITH ACTIVITY NOTED. SPO2 DOWN TO 84% WITH ACTIVITY BUT RIGHT BACK UP TO 92% WITH REST. HEART RATE TACHY. BP STABLE. NO EDEMA. BT+ ABD SOFT AND NONTENDER. DENEIS N/V. ATE 100% OF DINNER. IV POWER GLIDE TO LEFT UPPER ARM FLUSHED WITHOUT DIFFICULTY. UNABLE TO DRAW BLOOD. HS MEDS GIVEN. PLAN FOR THE NIGHT IS SLEEP. PT MED WITH HERMINIA.
--- NOTE | 2020-07-07 02:24 | NUR ---
PT AWAKE, REQUESTED FLEXERIL FOR BACK PAIN 12/02. STATES,"I DON'T WANT TO TAKE NORCO". PT MOVING AROUND IN BED. VSS.
--- NOTE | 2020-07-07 06:33 | NUR ---
SHIFT SUMMARY PT RESTED QUIETLY DURING THE NIGHT. VSS. UP AD LUPE IN ROOM. MED WITH HERMINIA FOR SLEEP. PT ON 6 LITER O2 VIA NC. PT STATES,"I'M FEELING BETTER". NO ACUTE CHANGE. REPORT TO ON COMING NURSE
--- NOTE | 2020-07-07 07:17 | NUR ---
ASSUMED CARE: PT RESTING IN BED ON 6L O2 VIA [place] NC. ALERT AND ORIENTED, TALKING TO STAFF. NO ACUTE NEEDS OR CONCERNS AT THIS TIME.
--- NOTE | 2020-07-07 09:52 | NUR ---
DR HAIRSTON CAME TO SEE PT AND STATED THAT PT IS PROGRESSING IN RIGHT DIRECTION BUT DUE TO DYSPNEA ON EXERTION STATES PT WILL REMAIN IN HOSPITAL FOR A DAY OR SO MORE. PT AWARE AND AGREEABLE TO THIS
--- NOTE | 2020-07-07 17:48 | NUR ---
SHIFT SUMMARY: PT ON 4L O2 VIA NC AT THIS TIME. PT HAS BEEN REPOSITIONING SELF, SELF PRONING AND GETTING UP TO BEDSIDE COMMODE AND CHAIR. STILL SOB WITH EXERTION WITH SOME DESATURATION BUT RECOVERS QUICKLY. PLAN IS FOR DC IN NEXT DAY OR SO AND LIKELY WTIH NEED HOME O2 EVALUATION PRIOR TO DC.
--- NOTE | 2020-07-07 19:15 | NUR ---
ASSUMING PT CARE: PT IN L SIDE LAYING POSITION IN BED. HUMIDIFIED NC IN PLACE @ 4L/MIN. PT APPROPRIATELY INTERACTIVE W/ STAFF & REQUESTS TO HAVE HIS AMBIEN BROUGHT W/ HIS NIGHTTIME MEDS. CALL LIGHT W/ IN REACH. PT DEMONSTRATES ABILITY TO MAKE NEEDS KNOWN.
[2020-07-08 05:07] LABS: Hematocrit 45.6 % (37.0-53.0); Hemoglobin 15.6 g/dL (13.5-17.5); Mean Corpuscular HGB 29.6 pg (26.0-34.0); Mean Corpuscular HGB Conc 34.2 g/dL (31.5-36.5); Mean Corpuscular Volume 87 fL (80-100); Mean Platelet Volume 9.4 fL (9.1-12.4); Platelet Count 301 K/mm3 (150-400); RDW Coefficient Variation 12.4 % (11.7-14.2); RDW Standard Deviation 38.6 fL (35.1-46.3); Red Blood Cell Count 5.27 M/mm3 (4.30-5.90); White Blood Cell Count 26.21 K/mm3 (4.00-11.30)
[2020-07-08 05:30] LABS: Alanine Aminotransfer (ALT/SGP 41 U/L (12-78); Albumin/Globulin Ratio 0.9 (0.8-1.8); Alk Phos 73 U/L (50-136); Anion Gap 6 mmol/L (6-16); Aspartate Aminotrans (AST/SGOT 15 U/L (12-37); BAND PERCENT MAN 2 % (0-8); BASOPHILS PERCENT MAN 0 % (0-2); Bilirubin, Total 0.4 mg/dL (0.1-1.0); Blood Urea Nitrogen 26 mg/dL (8-24); Bun/Creatinine Ratio 36.2 (12.0-20.0); C-REACTIVE PROTEIN, EXT RANGE <0.290 mg/dL (0.000-0.300); CO2, Blood 26 mmol/L (21-32); Calcium, Blood 8.5 mg/dL (8.5-10.1); Chloride, Blood 105 mmol/L (98-108); Creatinine, Blood 0.72 mg/dL (0.60-1.20); EOSINOPHILS PERCENT MAN 0 % (0-6); Globulin, Blood 3.3 g/dL (2.2-4.0); Glomerular Filtration Rate >60 (60-); Glucose, Blood 114 mg/dL (70-99); LYMPHOCYTES ABSOLUTE MAN 2.88 K/mm3 (0.84-5.20); LYMPHOCYTES PERCENT MAN 11 % (21-46); METAMYELOCYTE ABSOLUTE MAN 0.52 K/mm3 (0.00-0.00); METAMYELOCYTE PERCENT MAN 2 % (0-0); MONOCYTES ABSOLUTE MAN 0.26 K/mm3 (0.16-1.47); MONOCYTES PERCENT MAN 1 % (4-13); MYELOCYTE ABSOLUTE MAN 0.26 K/mm3 (0.00-0.00); MYELOCYTE PERCENT MAN 1 % (0-0); NEUTROPHILS ABSOLUTE MAN 22.27 K/mm3 (1.96-9.15); Potassium, Blood 4.4 mmol/L (3.5-5.5); SEG NEUTROPHILS PERCENT MAN 83 % (41-73); Sodium, Blood 137 mmol/L (136-145); TOTAL CELLS COUNTED 100; Total Protein, Blood 6.3 g/dL (6.4-8.2)
--- NOTE | 2020-07-08 05:59 | NUR ---
SHIFT SUMMARY: PT SLEPT VERY WELL LAST NIGHT. DENIES ANY WORSENING SOB OR DYSPNEA. PT ABLE TO SPEAK IN FULL SENTENCES W/OUT ANY SOB, SATS >92%. PT IS IN GOOD SPIRITS, EXPRESSES HIS EXCITEMENT IN GETTING GOOD SLEEP LAST NIGHT & POSS BEING DC'D HOME TODAY. VSS. WILL CONTINUE TO MONITOR UNTIL REPORT OF TO ONCOMING RN.
--- NOTE | 2020-07-08 09:53 | NUR ---
AM NOTE... ASSUMED CARE OF PT APROX 0700, PT IS A&Ox4 AND IND IN THE ROOM. PT'S VS STABLE W/HR IN THE 80'S-100'S. BP STABLE. AT THE START OF THIS SHIFT PT WAS ON 3.5LNC WHILE THIS RN WAS IN THE ROOM THE O2 WAS TITRATED TO OFF AND PT'S O2 SATS STAYED >89% PT WAS ON RA FOR ABOUT 15 MINS, PT REQUESTED TO BE TURNED BACK UP TO 2L NC WHEN THIS RN LEFT BECAUSE HE PLANNED ON GETTING UP AND WALKING TO THE CHAIR IN THE ROOM, HIS O2 WAS TURNED ON TO 2LNC. L/S SLIGHT WHEEZES HEARD IN THE UPPER LOBES CLEAR AND DIM T/O. RR IN THE 20'S EVEN AND UNLABORED AT THIS TIME PT DOES BECOME DYSPNIC WITH ACTIVITY BUT IS ABLE TO RECOVER QUICKLY. NO EDEMA NOTED ON ASSESSMENT. BT PRESENT AND NORMOACTIVE, ABD IS SOFT AND NONTENDER TO PALP. PT'S POWERGLIDE IN THE LEFT UPPER ARM UPON ASSESSMENT WAS VERY HARD TO FLUSH AND HAS NOT DRAWN FOR AWHILE, PT DENIES PAIN AT THE SITE. THE PLAN IS FOR THE PT TO D/C HOME TOMORROW ONCE HIS AND FAMILY CAN GET HIS HOME READY. WILL CONTINUE TO MONITOR.
--- NOTE | 2020-07-08 17:57 | NUR ---
SHIFT SUMMARY... NO ACUTE NEGATIVE CHANGES NOTED THIS SHIFT. PT HAS BEEN ON 2LNC OFF AND ON T/O THE DAY, PT HAS BEEN ON RA WITH O2 SATS >89% BUT PT BECOMES ANXIOUS IF STAFF ARE NOT IN THE ROOM AND HE IS ON RA. PT HAS BEEN IND IN HIS ROOM ALL SHIFT WALKING AROUND AND GETTING UP IN THE CHAIR AND WALKING TO THE TOILET. PT'S VS HAVE BEEN STABLE. PT IS TO D/C HOME TOMORROW PENDING NO NEGATIVE CHANGES. CALL LIGHT IN REACH WILL CONTINUE TO MONITOR UNTIL REPORT IS GIVEN TO ONCOMING RN.
--- NOTE | 2020-07-08 20:00 | NUR ---
ASSUMING PT CARE: PT LAYING SUPINE IN BED, WATCHING TV, CALL LIGHT W/ IN REACH. SUPPLEMENTAL O2 @ 2L/MIN VIA NC, SPO2 92-95%. PT INDEPENDENT IN ROOM, AMBULATES TO CHAIR & DOOR, BACK TO BED W/OUT DIFF. PT DENIES NEEDS OR COMPLAINTS @ THIS TIME.
[2020-07-09 06:02] LABS: Hematocrit 45.7 % (37.0-53.0); Hemoglobin 15.6 g/dL (13.5-17.5); Mean Corpuscular HGB 29.5 pg (26.0-34.0); Mean Corpuscular HGB Conc 34.1 g/dL (31.5-36.5); Mean Corpuscular Volume 86 fL (80-100); Mean Platelet Volume 9.7 fL (9.1-12.4); Platelet Count 289 K/mm3 (150-400); RDW Coefficient Variation 12.6 % (11.7-14.2); RDW Standard Deviation 39.5 fL (35.1-46.3); Red Blood Cell Count 5.29 M/mm3 (4.30-5.90); White Blood Cell Count 27.16 K/mm3 (4.00-11.30)
[2020-07-09 06:19] LABS: Anion Gap 9 mmol/L (6-16); Blood Urea Nitrogen 21 mg/dL (8-24); Bun/Creatinine Ratio 28.8 (12.0-20.0); CO2, Blood 25 mmol/L (21-32); Calcium, Blood 8.4 mg/dL (8.5-10.1); Chloride, Blood 104 mmol/L (98-108); Creatinine, Blood 0.73 mg/dL (0.60-1.20); Glomerular Filtration Rate >60 (60-); Glucose, Blood 88 mg/dL (70-99); Potassium, Blood 4.2 mmol/L (3.5-5.5); Sodium, Blood 138 mmol/L (136-145)
--- NOTE | 2020-07-09 06:21 | NUR ---
SHIFT SUMMARY: PT SLEPT SOUNDLY FOR THE MAJORITY OF THE NIGHT. THIS AM PT AWOKE & WAS ABLE TO AMBULATE FROM HIS BED TO THE DOOR TO TURN ON THE LIGHT & THEN BACK TO BED W/ ONLY MILD SOB. PT CONTINUES TO BE PLEASANT & EXPRESSES HIS EXCITEMENT IN BEING DC'D HOME TODAY. NO ACUTE CHANGES.
--- NOTE | 2020-07-09 09:43 | NUR ---
AM NOTE.... ASSUMED CARE OF PT APROX 0700, PT IS A&Ox4 AND IND IN THE ROOM. PT'S VS STABLE AT THIS TIME AND PT IS TO D/C HOME TODAY. L/S CLEAR T/O DIM IN THE BASES ON 2L NC WITH O2 SATS>90% PT HAS BEEN ON RA AT TIMES WITH O2 SATS >90% BUT HAS ANXIETY WHEN STAFF ARE NOT IN THE ROOM IF HE IS NOT ON 2L NC. NO EDEMA NOTED ON ASSESSMENT. BT PRESENT AND NORMOACTIVE, ABD IS SOFT AND NONTENDER TO PALP. CALL LIGHT IN REACH WILL CONTINUE TO MONITOR.
[2020-07-09] MEDS ORDERED: CYCL10 PO (11:12)
[2020-07-09] MEDS ORDERED: Ativan1 MG PO (11:12)
[2020-07-09] MEDS ORDERED: ASPI81CH PO (11:13)
[2020-07-09] MEDS ORDERED: AMBIEN5 MG PO (11:13)
[2020-07-09] MEDS ORDERED: OMEP20ER PO (11:13)
--- NOTE | 2020-07-09 14:40 | NUR ---
PT D/C.... PT D/C HOME WITH . MEDICATIONS CALLED INTO [facility] IN [place]. ALL OF PT'S BELONGINGS THAT HE WANTED TO TAKE WITH HIM WERE PACKED AND SENT WITH THE PT. POWERGLIDE IN HIS CASSANDRA WAS REMOVED WNL. PT WAS TAKEN TO HIS CAR WITH HIS .
== END 2020-07-09 13:15 | disposition home or self-care (01) | DRG 871 ==
LOC: ER 10:16 → ICUW 12:39
PROVIDERS: Emergency Medicine; Family Medicine; Internal Medicine; Internal Medicine Critical Care Medicine; Internal Medicine Pulmonary Disease; Nurse Practitioner Acute Care; ADMIT Internal Medicine
PROC: XW033E5 Introduction of Remdesivir Anti-infective into Peripheral Vein, Percutaneous Approach, New Technology Group 5 (ICD-10-PCS; 2020-06-18)
PROC: 5A09457 Assistance with Respiratory Ventilation, 24-96 Consecutive Hours, Continuous Positive Airway Pressure (ICD-10-PCS; principal; 2020-06-20)
DX: A41.89 Other specified sepsis (principal); U07.1 COVID-19; J12.81 Pneumonia due to SARS-associated coronavirus; J96.01 Acute respiratory failure with hypoxia; J15.9 Unspecified bacterial pneumonia
CPT/HCPCS: 36415; 36600; 71045; 80047; 80048; 80053; 80076; 80202; 82330; 82803; 83605; 83735; 84100; 84145; 84443; 84484; 85014; 85025; 85027; 85379; 85610; 85730; 86140; 87040; 87070; 87205; 93005; 93010; 94644; 94660; 94761; 96361; 96365; 96367; 96368; 96375; 97110; 97163; 99285-25; A9270; C1751; J0610; J0692; J0696; J1100; J1650; J1885; J1940; J2060; J2543; J3010; J3370; J3480; J7030; J7050

== ENCOUNTER → 2021-10-02 | Outpatient (CLI) | payer OTHER ==
[~2021-10-02] MED LIST changes: +AMBIEN5 MG PO; +ASCO500 PO; +ASPI81CH PO; +Ativan1 MG PO; +CYCL10 PO; +OMEP20ER PO; +Zinc Gluconate100 MG PO
== END ==
LOC: LAB SHORT 14:18 → PLD 14:18
DX: D48.5 Neoplasm of uncertain behavior of skin (principal)
CPT/HCPCS: 88312